=== PATIENT | female | born 1950 | race American Indian/Alaskan Native ===

== ENCOUNTER → 2019-11-07 | Outpatient (CLI) | payer MEDICARE ==
[2019-11-07 19:49] LABS: Adenovirus F 40/41 Not Detected (NOT DETECT); Astrovirus Not Detected (NOT DETECT); Campylobacter Sp Not Detected (NOT DETECT); Cryptosporidium Not Detected (NOT DETECT); Cyclospora Cayetanensis Not Detected (NOT DETECT); E. Coli O157 Not Detected (NOT DETECT); Entamoeba Histolytica Not Detected (NOT DETECT); Enteroaggregative E. coli-EAEC Not Detected (NOT DETECT); Enteropathogenic E. coli-EPEC Not Detected (NOT DETECT); Enterotoxigenic E. coli-ETEC Not Detected (NOT DETECT); Giardia Lamblia Not Detected (NOT DETECT); Norovirus GI/GII Not Detected (NOT DETECT); Plesiomonas Shigelloides Not Detected (NOT DETECT); Rotavirus A Not Detected (NOT DETECT); Salmonella Sp Not Detected (NOT DETECT); Sapovirus Not Detected (NOT DETECT); Shiga Toxin-prod E. coli-STEC Not Detected (NOT DETECT); Shigella/Enteroin E. coli-EIEC Not Detected (NOT DETECT); Vibrio Cholerae Not Detected (NOT DETECT); Vibrio Sp Not Detected (NOT DETECT); Yersinia Enterocolitica Not Detected (NOT DETECT)
[2019-11-08 10:23] LABS: Stool Occult Blood Guaiac 1 Neg (Neg)
[2019-11-08 15:11] LABS: FATS, NEUTRAL Increased (.); FATS, TOTAL Increased (.)
== END | disposition home or self-care (01) ==
LOC: LAB 09:00 → LAB SHORT 09:00
PROVIDERS: Family Medicine
DX: R19.7 Diarrhea, unspecified (principal)
CPT/HCPCS: 0097U; 82270; 82705; 87338

== ENCOUNTER → 2019-11-21 | Outpatient (CLI) | payer MEDICARE ==
[2019-11-22 12:15] LABS: Bilirubin, Urine Neg (Neg); Blood, Urine Neg (Neg); Glucose Qualitative, Urine Neg (Neg); Ketones, Urine Neg (Neg); Leukocyte Esterase, Urine 3+ (Neg); Nitrite, Urine Neg (Neg); Protein, Urine Neg (Neg); Specific Gravity, Urine 1.005 (1.003-1.022); Urobilinogen, Urine NORM (Normal)
[2019-11-22 13:13] LABS: Appearance, Urine Clear (Clear); Color, Urine Yellow (P-Yellow)
[2019-11-22 13:14] LABS: Red Blood Cells, Urine 0-2 /hpf (0-2); Squamous Epithelial Cells Few /hpf (Few)
[2019-11-22 13:15] LABS: Bacteria Few /hpf
== END | disposition home or self-care (01) ==
LOC: OLS 15:22 → LAB SHORT 15:22
PROVIDERS: Family Medicine
DX: R30.0 Dysuria (principal)
CPT/HCPCS: 81001; 87086

== ENCOUNTER 2019-12-26 21:49 | Inpatient (IN) | payer MEDICARE ==
[~2019-12-26] VITALS: Ht 157.5 cm; Wt 77.1 kg
[2019-12-26] MEDS ORDERED: CLOP75 PO (22:14)
[2019-12-26] MEDS ORDERED: AMLO10 PO (22:14)
[2019-12-26 22:36] LABS: BASOPHILS ABSOLUTE AUTO 0.07 K/mm3 (0.00-0.23); BASOPHILS PERCENT AUTO 1 % (0-2); EOSINOPHILS ABSOLUTE AUTO 0.02 K/mm3 (0.00-0.68); EOSINOPHILS PERCENT AUTO 0 % (0-6); Hematocrit 38.2 % (33.0-51.0); Hemoglobin 12.9 g/dL (11.5-16.0); IMMATURE GRAN ABSOLUTE AUTO 0.06 K/mm3 (0.00-0.10); IMMATURE GRAN PERCENT AUTO 0 % (0-1); LYMPHOCYTES ABSOLUTE AUTO 0.77 K/mm3 (0.84-5.20); LYMPHOCYTES PERCENT AUTO 6 % (21-46); MONOCYTES ABSOLUTE AUTO 0.52 K/mm3 (0.16-1.47); MONOCYTES PERCENT AUTO 4 % (4-13); Mean Corpuscular HGB 29.3 pg (26.0-34.0); Mean Corpuscular HGB Conc 33.8 g/dL (31.5-36.5); Mean Corpuscular Volume 87 fL (80-100); Mean Platelet Volume 9.6 fL (9.1-12.4); NEUTROPHILS ABSOLUTE AUTO 12.63 K/mm3 (1.96-9.15); NEUTROPHILS PERCENT AUTO 90 % (41-73); Platelet Count 470 K/mm3 (150-400); RDW Coefficient Variation 11.7 % (11.7-14.2); RDW Standard Deviation 37.6 fL (35.1-46.3); Red Blood Cell Count 4.41 M/mm3 (3.80-5.20); White Blood Cell Count 14.07 K/mm3 (4.00-11.30)
[2019-12-26 22:57] LABS: Alanine Aminotransfer (ALT/SGP 11 U/L (12-78); Albumin, Blood 2.6 g/dL (3.4-5.0); Albumin/Globulin Ratio 0.6 (0.8-1.8); Alk Phos 87 U/L (50-136); Anion Gap 13 mmol/L (6-16); Aspartate Aminotrans (AST/SGOT 13 U/L (12-37); Bilirubin, Total 0.7 mg/dL (0.1-1.0); Blood Urea Nitrogen 10 mg/dL (8-24); Bun/Creatinine Ratio 18.9 (12.0-20.0); CO2, Blood 21 mmol/L (21-32); Chloride, Blood 103 mmol/L (98-108); Creatinine, Blood 0.53 mg/dL (0.40-1.00); Globulin, Blood 4.5 g/dL (2.2-4.0); Glomerular Filtration Rate >60 (60-); Glucose, Blood 128 mg/dL (70-99); Magnesium, Blood 1.6 mg/dL (1.6-2.4); Potassium, Blood 3.5 mmol/L (3.5-5.5); Sodium, Blood 137 mmol/L (136-145); Total Protein, Blood 7.1 g/dL (6.4-8.2); Troponin I <0.015 ng/mL (0.000-0.040)
[2019-12-26 23:11] LABS: Source, Urine Clean Catch
[2019-12-26 23:17] LABS: Appearance, Urine Clear (Clear); Bilirubin, Urine Neg (Neg); Blood, Urine 1+ (Neg); Color, Urine Yellow (P-Yellow); Glucose Qualitative, Urine Neg (Neg); Ketones, Urine 4+ (Neg); Leukocyte Esterase, Urine 2+ (Neg); Nitrite, Urine Neg (Neg); Protein, Urine Neg (Neg); Specific Gravity, Urine 1.005 (1.003-1.022); Urobilinogen, Urine NORM (Normal)
[2019-12-26 23:28] LABS: Bacteria Mod /hpf; Squamous Epithelial Cells Mod /hpf (Few); White Blood Cells, Urine 50-100 /hpf (0-5)
[2019-12-27 04:21] LABS: BASOPHILS ABSOLUTE AUTO 0.04 K/mm3 (0.00-0.23); BASOPHILS PERCENT AUTO 0 % (0-2); EOSINOPHILS PERCENT AUTO 0 % (0-6); Hematocrit 37.9 % (33.0-51.0); Hemoglobin 13.1 g/dL (11.5-16.0); IMMATURE GRAN ABSOLUTE AUTO 0.03 K/mm3 (0.00-0.10); IMMATURE GRAN PERCENT AUTO 0 % (0-1); LYMPHOCYTES ABSOLUTE AUTO 0.43 K/mm3 (0.84-5.20); LYMPHOCYTES PERCENT AUTO 4 % (21-46); MONOCYTES ABSOLUTE AUTO 0.29 K/mm3 (0.16-1.47); MONOCYTES PERCENT AUTO 2 % (4-13); Mean Corpuscular HGB 29.9 pg (26.0-34.0); Mean Corpuscular HGB Conc 34.6 g/dL (31.5-36.5); Mean Corpuscular Volume 87 fL (80-100); Mean Platelet Volume 9.5 fL (9.1-12.4); NEUTROPHILS ABSOLUTE AUTO 11.52 K/mm3 (1.96-9.15); NEUTROPHILS PERCENT AUTO 94 % (41-73); Platelet Count 461 K/mm3 (150-400); RDW Coefficient Variation 11.8 % (11.7-14.2); RDW Standard Deviation 37.5 fL (35.1-46.3); Red Blood Cell Count 4.38 M/mm3 (3.80-5.20); White Blood Cell Count 12.31 K/mm3 (4.00-11.30)
[2019-12-27 04:38] LABS: Alanine Aminotransfer (ALT/SGP 12 U/L (12-78); Albumin, Blood 2.9 g/dL (3.4-5.0); Albumin/Globulin Ratio 0.6 (0.8-1.8); Alk Phos 91 U/L (50-136); Anion Gap 10 mmol/L (6-16); Aspartate Aminotrans (AST/SGOT 11 U/L (12-37); Bilirubin, Total 0.5 mg/dL (0.1-1.0); Blood Urea Nitrogen 7 mg/dL (8-24); Bun/Creatinine Ratio 14.7 (12.0-20.0); CO2, Blood 24 mmol/L (21-32); Calcium, Blood 8.7 mg/dL (8.5-10.1); Chloride, Blood 100 mmol/L (98-108); Creatinine, Blood 0.48 mg/dL (0.40-1.00); Globulin, Blood 4.6 g/dL (2.2-4.0); Glomerular Filtration Rate >60 (60-); Glucose, Blood 149 mg/dL (70-99); Potassium, Blood 2.8 mmol/L (3.5-5.5); Sodium, Blood 134 mmol/L (136-145); Total Protein, Blood 7.5 g/dL (6.4-8.2)
--- NOTE | 2019-12-27 06:13 | NUR ---
SHIFT SUMMARY PT WAS A NEW ADMIT DURING THE NIGHT, ARRIVING ON THE FLOOR AT 0205. SHE IS A&O X 4, SBA TO THE BATHROOM. PT WAS ADMITTED FOR ABD PAIN AND SEPSIS, AND N/V THAT STARTED YESTERDAY AFTER PT STARTED NEW CELEBREX PRESCRIPTION. PT IS STILL C/O NAUSEA ON ADMISSION AND RUQ TENDERNESS. VITAL SIGNS STABLE. SHE IS RECEIVING NS @ 75 ML/HR. NO ACUTE CHANGES IN PT CONDITION NOTED SINCE ADMISSION. WILL CONTINUE TO MONITOR AND TREAT PER EMAR UNTIL HAND OFF TO DAY SHIFT RN.
--- NOTE | 2019-12-27 08:07 | NUR ---
IV PLACEMENT: PATIENT HAS A PATENT IV WITH IV FLUIDS IN THE LEFT A/C, NOT THE RIGHT A/C.
[2019-12-27 08:30] LABS: Source, Urine Clean Catch
[2019-12-27 08:38] LABS: Bilirubin, Urine Neg (Neg); Blood, Urine 1+ (Neg); Color, Urine Yellow (P-Yellow); Glucose Qualitative, Urine 1+ (Neg); Ketones, Urine 3+ (Neg); Leukocyte Esterase, Urine 3+ (Neg); Nitrite, Urine Neg (Neg); Protein, Urine Neg (Neg); Specific Gravity, Urine 1.005 (1.003-1.022); Urobilinogen, Urine NORM (Normal)
[2019-12-27 08:46] LABS: Appearance, Urine Hazy (Clear); Bacteria Few /hpf; Squamous Epithelial Cells Many /hpf (Few); White Blood Cells, Urine 50-100 /hpf (0-5)
[2019-12-27 09:26] LABS: Adenovirus Not Detected (NOT DETECT); Coronavirus 229E Not Detected (NOT DETECT); Coronavirus HKU1 Not Detected (NOT DETECT); Coronavirus NL63 Not Detected (NOT DETECT); Coronavirus OC43 Not Detected (NOT DETECT); Human Metapneumovirus Not Detected (NOT DETECT); Human Rhinovirus/Enterovirus Not Detected (NOT DETECT); SARS-Cov-2 (COVID-19), BioFire Not Detected (NOT DETECT)
[2019-12-27 09:27] LABS: Bordetella pertussis Not Detected (NOT DETECT); Chlamydophila pneumoniae Not Detected (NOT DETECT); Influenza A/2009-H1 Not Detected (NOT DETECT); Influenza A/H1 Not Detected (NOT DETECT); Influenza A/H3 Not Detected (NOT DETECT); Influenza B Not Detected (NOT DETECT); Mycoplasma pneumoniae Not Detected (NOT DETECT); Parainfluenza Virus 1 Not Detected (NOT DETECT); Parainfluenza Virus 2 Not Detected (NOT DETECT); Parainfluenza Virus 3 Not Detected (NOT DETECT); Parainfluenza Virus 4 Not Detected (NOT DETECT); Respiratory Syncytial Virus Not Detected (NOT DETECT)
[2019-12-27 15:24] LABS: Anion Gap 9 mmol/L (6-16); Blood Urea Nitrogen 5 mg/dL (8-24); Bun/Creatinine Ratio 9.8 (12.0-20.0); CO2, Blood 24 mmol/L (21-32); Calcium, Blood 9.1 mg/dL (8.5-10.1); Chloride, Blood 105 mmol/L (98-108); Creatinine, Blood 0.51 mg/dL (0.40-1.00); Glomerular Filtration Rate >60 (60-); Glucose, Blood 92 mg/dL (70-99); Potassium, Blood 3.3 mmol/L (3.5-5.5); Sodium, Blood 138 mmol/L (136-145)
--- NOTE | 2019-12-27 19:15 | NUR ---
END OF SHIFT SUMMARY: PATIENT EXPERIENCED PAIN AND NAUSEA AT A 9/10 THIS MORNING. MEDICATED WITH MULTIPLE ANTI-EMETICS PER PRNS. MEDICATED FOR BREAKTHROUGH PAIN, SEE EMAR. AFTER THIS, PATIENT WAS ABLE TO REST AND FOR THE REST OF THE SHIFT PATIENT DENIED PAIN OR NAUSEA. PATIENT WAS WILLING TO HAVE WATER AND ICE CHIPS. PATIENT REFUSED ALL OTHER TYPES OF ORAL INTAKE, CITING THAT SHE DIDN'T WANT THE NAUSEA OR PAIN TO RETURN. PATIENT AWARE THAT SHE IS NPO AT MIDNIGHT FOR THE 11:30 BRONCHOSCOPY. PATIENT TOLERATING WATER AND ICE CHIPS WITHOUT NAUSEA OR ABDOMINAL CRAMPING. IV PPN STARTED PER ORDERS. PATIENT LEFT THE UNIT FOR A ABD CT WITH CONTRAST. RN NOTIFED THAT DUE TO RECENT CT SCAN WITH THE CONTRAST, THE PATIENT WILL NEED TO WAIT 24 HOURS FOR ANOTHER SCAN WITH CONTRAST. DR. GOMEZ NOTIFIED. PATIENT UP IN THE ROOM. PATIENT STEADY ON HER FEET. SOME SOB IS NOTED WITH AMBULATION. PATIENT REPORTS THIS IS HER BASELINE. NO SOB NOTED AT REST. BREATHING IS EVEN AND REGULAR. PATIENT'S WAS AT THE BEDSIDE FOR MUCH OF THE DAY.
--- NOTE | 2019-12-27 22:39 | NUR ---
2004 PT RESTING COMFORTABLY IN BED; DENIES PAIN, NAUSEA OR VOMITING; HAPPY AND COOPERATIVE; PT SCHEDULED FOR BRONCHOSCOPY 12/27 AND NPO AFTER MIDNIGHT.
--- NOTE | 2019-12-28 03:15 | NUR ---
SHIFT SUMMARY: 69 Y/O FEMALE RESTED COMFORTABLY ALL SHIFT; DENIES PAIN OR NAUSEA; PPN INFUSING WITHOUT ISSUE; PT NPO SINCE MIDNIGHT FOR BRONCHOSCOPY SCHEDULED THIS AM (CT ABD/PELVIS WITH CONTRAST WAS CANCELLED BY HOSPITALIST AND WILL NEED TO BE RESCHEDULED AFTER BRONCHOSCOPY COMPLETED TODAY); TELEMETRY REFLECTS NSR PER LUANNE--COMPREHENSIVE ADVISOR; BED LOW POSITION WITH CALL LIGHT AT SIDE; ALERT AND ORIENTED X 4.
[2019-12-28 04:55] LABS: BASOPHILS ABSOLUTE AUTO 0.09 K/mm3 (0.00-0.23); BASOPHILS PERCENT AUTO 1 % (0-2); EOSINOPHILS ABSOLUTE AUTO 0.19 K/mm3 (0.00-0.68); EOSINOPHILS PERCENT AUTO 2 % (0-6); Hematocrit 36.9 % (33.0-51.0); IMMATURE GRAN ABSOLUTE AUTO 0.07 K/mm3 (0.00-0.10); IMMATURE GRAN PERCENT AUTO 1 % (0-1); LYMPHOCYTES ABSOLUTE AUTO 1.83 K/mm3 (0.84-5.20); LYMPHOCYTES PERCENT AUTO 18 % (21-46); MONOCYTES ABSOLUTE AUTO 1.08 K/mm3 (0.16-1.47); MONOCYTES PERCENT AUTO 10 % (4-13); Mean Corpuscular HGB 29.2 pg (26.0-34.0); Mean Corpuscular HGB Conc 32.5 g/dL (31.5-36.5); Mean Corpuscular Volume 90 fL (80-100); NEUTROPHILS PERCENT AUTO 69 % (41-73); Platelet Count 433 K/mm3 (150-400); RDW Coefficient Variation 12.1 % (11.7-14.2); RDW Standard Deviation 39.7 fL (35.1-46.3); Red Blood Cell Count 4.11 M/mm3 (3.80-5.20); White Blood Cell Count 10.36 K/mm3 (4.00-11.30)
[2019-12-28 05:10] LABS: International Normalized Ratio 1.04; Prothrombin Time Results 11.1 Sec (9.7-11.5)
[2019-12-28 05:14] LABS: Alanine Aminotransfer (ALT/SGP 12 U/L (12-78); Albumin, Blood 2.4 g/dL (3.4-5.0); Albumin/Globulin Ratio 0.6 (0.8-1.8); Alk Phos 74 U/L (50-136); Anion Gap 8 mmol/L (6-16); Aspartate Aminotrans (AST/SGOT 20 U/L (12-37); Bilirubin, Total 0.4 mg/dL (0.1-1.0); Blood Urea Nitrogen 9 mg/dL (8-24); Bun/Creatinine Ratio 16.7 (12.0-20.0); CO2, Blood 26 mmol/L (21-32); Chloride, Blood 105 mmol/L (98-108); Creatinine, Blood 0.54 mg/dL (0.40-1.00); Globulin, Blood 4.2 g/dL (2.2-4.0); Glomerular Filtration Rate >60 (60-); Glucose, Blood 90 mg/dL (70-99); Magnesium, Blood 1.9 mg/dL (1.6-2.4); Phosphorus, Blood 3.1 mg/dL (2.5-4.9); Potassium, Blood 3.4 mmol/L (3.5-5.5); Sodium, Blood 139 mmol/L (136-145); Total Protein, Blood 6.6 g/dL (6.4-8.2); Triglycerides 129 mg/dL (30-160)
--- NOTE | 2019-12-28 10:54 | NUR ---
PT TRANSFERED TO [facility] FROM FLOOR VIA GURNEY. History, Chart, Medications and Allergies reviewed before start of procedure. RUL WITH LOLA MCHUGH. Patient confirms NPO status and agrees with scheduled surgery.
--- NOTE | 2019-12-28 11:09 | NUR ---
12/28/19 1109 Nicole Wells PATIENT CONFIRMS NPO STATUS AND AGREES WITH SCHEDULED PROCEDURE. History, Chart, Medications and Allergies reviewed before start of procedure. O2 VIA N/C INTACT THROUGHOUT SEDATION/PROCEDURE. 3-LEAD EKG REVIEWED WITH PHYSICIAN PRIOR TO START OF PROCEDURE. MONITOR INTACT WITH CONTINUOUS PULSE OXIMETRY AND INTERMITTENT BP.
--- NOTE | 2019-12-28 19:12 | NUR ---
SHIFT SUMMARY: PATIENT A&O; CALM AND COOPERATIVE WITH CARE. MEDICATED FOR NAUSEA PER EMAR. BRONCHOSCOPY THIS SHIFT; PT TOLERATED WELL; VSS; XRAY TO R/O PNEUMOTHORAX. PT REMAINS NPO; TPN CONTINUING AT 96 ML/HR. REPORT GIVEN TO ONCOMING RN.
--- NOTE | 2019-12-28 21:52 | NUR ---
2017 BP 178/107, MORPHINE SULFATE 1MG IVP GIVEN AND REGLAN 10MG PO FOR NAUSEA FEELING. 2124 BP 179/107, DR CALVILLO NOTIFIED WITH ORDERS INPUTTED TO SYSTEM BY .
--- NOTE | 2019-12-29 05:13 | NUR ---
SHIFT SUMMARY: 69 Y/O OBESE FEMALE RESTED COMFORTABLY ALL SHIFT; PT HAD HYPERTENSIVE EPISODE BEGINNING OF SHIFT WITH LABETALOL 10MG IVP GIVEN WITH GOOD RESULTS NOTED; DENIES PAIN; C/O SLIGHT NAUSEA FEELING WITH REGLAN 10MG PO GIVEN WITH GOOD RELIEF NOTED; NPO; PPN INFUSING WITHOUT ISSUE; UP TO BATHROOM X 1 STANDBY ASSIST WITHOUT ISSUE TO VOID; NO BM; TELEMETRY REFLECTS NSR PER LUANNE--TERRITORY REPRESENTATIVE; BED LOW POSITION WITH CALL LIGHT AT SIDE.
[2019-12-29 05:15] LABS: BASOPHILS ABSOLUTE AUTO 0.06 K/mm3 (0.00-0.23); BASOPHILS PERCENT AUTO 1 % (0-2); EOSINOPHILS ABSOLUTE AUTO 0.07 K/mm3 (0.00-0.68); EOSINOPHILS PERCENT AUTO 1 % (0-6); Hematocrit 36.9 % (33.0-51.0); Hemoglobin 12.3 g/dL (11.5-16.0); IMMATURE GRAN ABSOLUTE AUTO 0.04 K/mm3 (0.00-0.10); IMMATURE GRAN PERCENT AUTO 0 % (0-1); LYMPHOCYTES ABSOLUTE AUTO 1.29 K/mm3 (0.84-5.20); LYMPHOCYTES PERCENT AUTO 12 % (21-46); MONOCYTES ABSOLUTE AUTO 1.05 K/mm3 (0.16-1.47); MONOCYTES PERCENT AUTO 10 % (4-13); Mean Corpuscular HGB 29.6 pg (26.0-34.0); Mean Corpuscular HGB Conc 33.3 g/dL (31.5-36.5); Mean Corpuscular Volume 89 fL (80-100); Mean Platelet Volume 9.9 fL (9.1-12.4); NEUTROPHILS ABSOLUTE AUTO 8.11 K/mm3 (1.96-9.15); NEUTROPHILS PERCENT AUTO 76 % (41-73); Platelet Count 438 K/mm3 (150-400); RDW Coefficient Variation 11.9 % (11.7-14.2); RDW Standard Deviation 38.4 fL (35.1-46.3); Red Blood Cell Count 4.16 M/mm3 (3.80-5.20); White Blood Cell Count 10.62 K/mm3 (4.00-11.30)
[2019-12-29 05:40] LABS: Alanine Aminotransfer (ALT/SGP 12 U/L (12-78); Albumin, Blood 2.6 g/dL (3.4-5.0); Albumin/Globulin Ratio 0.7 (0.8-1.8); Alk Phos 68 U/L (50-136); Anion Gap 7 mmol/L (6-16); Aspartate Aminotrans (AST/SGOT 13 U/L (12-37); Bilirubin, Total 0.3 mg/dL (0.1-1.0); Blood Urea Nitrogen 13 mg/dL (8-24); Bun/Creatinine Ratio 22.2 (12.0-20.0); CO2, Blood 31 mmol/L (21-32); Chloride, Blood 99 mmol/L (98-108); Creatinine, Blood 0.59 mg/dL (0.40-1.00); Globulin, Blood 3.9 g/dL (2.2-4.0); Glomerular Filtration Rate >60 (60-); Glucose, Blood 108 mg/dL (70-99); Phosphorus, Blood 3.3 mg/dL (2.5-4.9); Potassium, Blood 2.7 mmol/L (3.5-5.5); Sodium, Blood 137 mmol/L (136-145); Total Protein, Blood 6.5 g/dL (6.4-8.2)
[2019-12-29] MEDS ORDERED: XARELTO20 MG PO (16:52)
[2019-12-29] MEDS ORDERED: CEFD300 PO (16:52)
[2019-12-29] MEDS ORDERED: ACET325 PO (16:52)
[2019-12-29] MEDS ORDERED: PROM12.5S PR (16:53)
--- NOTE | 2019-12-29 18:52 | NUR ---
PATIENT DISCHARGE: PATIENT DISCHARGED TO HOME THIS SHIFT. MEDICATION RECONCILIATION COMPLETED; MED LIST FAXED TO [facility] IN [place]. DISCHARGE EDUCATION COMPLETED WITH PATIENT AND FAMILY. PATIENT TRANSPORTED TO EXIT BY [facility] STAFF WITH WHEELCHAIR AT 1715. PATIENT DEPARTED [facility] VIA PRIVATE AUTO.
[2019-12-30] MEDS ORDERED: CELEXA10 MG PO (14:06)
== END 2019-12-29 17:14 | disposition home or self-care (01) | DRG 853 ==
LOC: ER 21:49 → MEDS 12-27 01:03 → ER 12-27 01:03 → MEDS 12-27 01:03 → ER 12-27 01:45 → MEDS 12-27 02:02
PROVIDERS: Emergency Medicine; Family Medicine; Internal Medicine Pulmonary Disease; ADMIT Internal Medicine
PROC: 0BBF8ZX Excision of Right Lower Lung Lobe, Via Natural or Artificial Opening Endoscopic, Diagnostic (ICD-10-PCS; principal; 2019-12-28 11:30)
PROC: 0BDD8ZX Extraction of Right Middle Lung Lobe, Via Natural or Artificial Opening Endoscopic, Diagnostic (ICD-10-PCS; 2019-12-28 11:30)
PROC: 0B9D8ZX Drainage of Right Middle Lung Lobe, Via Natural or Artificial Opening Endoscopic, Diagnostic (ICD-10-PCS; 2019-12-28 11:30)
DX: A41.51 Sepsis due to Escherichia coli [E. coli] (principal); I26.99 Other pulmonary embolism without acute cor pulmonale; E43 Unspecified severe protein-calorie malnutrition; C85.90 Non-Hodgkin lymphoma, unspecified, unspecified site; N39.0 Urinary tract infection, site not specified; C34.91 Malignant neoplasm of unspecified part of right bronchus or lung; Z87.891 Personal history of nicotine dependence; Z20.828 Contact with and (suspected) exposure to other viral communicable diseases; I10 Essential (primary) hypertension; E86.0 Dehydration; E87.6 Hypokalemia; Z68.31 Body mass index [BMI] 31.0-31.9, adult; F32.9 Major depressive disorder, single episode, unspecified; R91.8 Other nonspecific abnormal finding of lung field; R93.0 Abnormal findings on diagnostic imaging of skull and head, not elsewhere classified
CPT/HCPCS: 0202U; 36415; 71045; 71260; 74022; 74176; 80048; 80053; 81001; 82947; 83605; 83690; 83735; 84100; 84478; 84484; 85025; 85610; 85730; 87040; 87070; 87077; 87086; 87186; 87205; 88104; 88108; 88305; 93005; 93010; 94760; 96361; 96365; 96375; 96376; 99285-25; A9270-GY; C9113; G0378; J0171; J0456; J0696; J1650; J2250; J2270; J2405; J2550; J2765; J3010; J3480; J7030; J7050; J7120; Q9967

== ENCOUNTER 2019-12-30 12:20 | Inpatient (IN) | payer MEDICARE ==
[~2019-12-30] VITALS: Ht 157.5 cm; Wt 77.2 kg
[~2019-12-30 12:20] MED LIST: ACET325 PO; AMLO10 PO; CEFD300 PO; CLOP75 PO; PROM12.5S PR; XARELTO20 MG PO
[2019-12-30 12:58] LABS: BASOPHILS ABSOLUTE AUTO 0.12 K/mm3 (0.00-0.23); BASOPHILS PERCENT AUTO 1 % (0-2); EOSINOPHILS ABSOLUTE AUTO 0.03 K/mm3 (0.00-0.68); EOSINOPHILS PERCENT AUTO 0 % (0-6); Hematocrit 43.9 % (33.0-51.0); IMMATURE GRAN ABSOLUTE AUTO 0.07 K/mm3 (0.00-0.10); IMMATURE GRAN PERCENT AUTO 1 % (0-1); LYMPHOCYTES ABSOLUTE AUTO 1.05 K/mm3 (0.84-5.20); LYMPHOCYTES PERCENT AUTO 7 % (21-46); MONOCYTES ABSOLUTE AUTO 0.68 K/mm3 (0.16-1.47); MONOCYTES PERCENT AUTO 5 % (4-13); Mean Corpuscular HGB 29.8 pg (26.0-34.0); Mean Corpuscular HGB Conc 34.2 g/dL (31.5-36.5); Mean Corpuscular Volume 87 fL (80-100); Mean Platelet Volume 9.6 fL (9.1-12.4); NEUTROPHILS ABSOLUTE AUTO 12.27 K/mm3 (1.96-9.15); NEUTROPHILS PERCENT AUTO 86 % (41-73); Platelet Count 548 K/mm3 (150-400); RDW Coefficient Variation 11.9 % (11.7-14.2); RDW Standard Deviation 38.5 fL (35.1-46.3); Red Blood Cell Count 5.03 M/mm3 (3.80-5.20); White Blood Cell Count 14.22 K/mm3 (4.00-11.30)
[2019-12-30 13:13] LABS: Alanine Aminotransfer (ALT/SGP 18 U/L (12-78); Albumin, Blood 3.2 g/dL (3.4-5.0); Albumin/Globulin Ratio 0.7 (0.8-1.8); Alk Phos 104 U/L (50-136); Anion Gap 12 mmol/L (6-16); Aspartate Aminotrans (AST/SGOT 22 U/L (12-37); Bilirubin, Total 0.7 mg/dL (0.1-1.0); Blood Urea Nitrogen 21 mg/dL (8-24); CO2, Blood 24 mmol/L (21-32); Calcium, Blood 9.2 mg/dL (8.5-10.1); Chloride, Blood 102 mmol/L (98-108); Creatinine, Blood 0.72 mg/dL (0.40-1.00); Globulin, Blood 4.6 g/dL (2.2-4.0); Glomerular Filtration Rate >60 (60-); Glucose, Blood 125 mg/dL (70-99); Potassium, Blood 3.2 mmol/L (3.5-5.5); Sodium, Blood 138 mmol/L (136-145); Total Protein, Blood 7.8 g/dL (6.4-8.2)
[2019-12-30] MEDS ORDERED: CELEXA10 MG PO (14:06)
--- NOTE | 2019-12-30 16:56 | NUR ---
SHIFT SUMMARY PT ADMITTED FROM THE ER. SHE IS A/O X 4. SHE WAS DCD FROM MEDICAL FLOOR LAST NIGHT AND RETURNED WITH THE SAME N/V.SHE WAS UNABLE TO START HER NEW MEDS FROM DC LAST NIGHT SHE WAS SICK SINCE HER ARRIVAL BACK HOME. HER CALLED EMS AND HIS HERE NOW AT THE BEDSIDE. THEY ARE BOTH PLEASANT AND CONCERNED ABOUT HER ONGOING NAUSEA. SHE WAS ABLE TO TRANSFER TO BSC WITH STAND BY ASSIST. SHE KNOWS HOW TO USE THE CALL LIGHT AND HAS IT IN REACH.
--- NOTE | 2019-12-31 00:21 | NUR ---
BP ELEVATED EARLIER AND WAS NAUSEATED. RECEIVED ANTIEMETIC FIRST THEN ANTIHYPERTENSIVE - SEE MAR FOR DETAILS. BP LOWER, BUT STILL ELEVATED - SEE DOC FLOW SHEETS. WILL CONTINUE TO ASSESS AND ADMINISTER MEDS ORDERED. CURRENTLY RESTING QUYIETLY. NO C/O VOICED, CALL LIGHT IN REACH
[2019-12-31 05:06] LABS: BASOPHILS ABSOLUTE AUTO 0.08 K/mm3 (0.00-0.23); BASOPHILS PERCENT AUTO 1 % (0-2); EOSINOPHILS PERCENT AUTO 1 % (0-6); Hematocrit 40.3 % (33.0-51.0); Hemoglobin 13.7 g/dL (11.5-16.0); IMMATURE GRAN ABSOLUTE AUTO 0.08 K/mm3 (0.00-0.10); IMMATURE GRAN PERCENT AUTO 1 % (0-1); LYMPHOCYTES PERCENT AUTO 11 % (21-46); MONOCYTES ABSOLUTE AUTO 1.27 K/mm3 (0.16-1.47); MONOCYTES PERCENT AUTO 9 % (4-13); Mean Corpuscular HGB 29.8 pg (26.0-34.0); Mean Corpuscular Volume 88 fL (80-100); Mean Platelet Volume 9.3 fL (9.1-12.4); NEUTROPHILS ABSOLUTE AUTO 10.99 K/mm3 (1.96-9.15); NEUTROPHILS PERCENT AUTO 78 % (41-73); Platelet Count 492 K/mm3 (150-400); RDW Coefficient Variation 11.9 % (11.7-14.2); RDW Standard Deviation 38.5 fL (35.1-46.3); Red Blood Cell Count 4.59 M/mm3 (3.80-5.20); White Blood Cell Count 14.02 K/mm3 (4.00-11.30)
[2019-12-31 05:54] LABS: Alanine Aminotransfer (ALT/SGP 17 U/L (12-78); Albumin, Blood 2.7 g/dL (3.4-5.0); Albumin/Globulin Ratio 0.7 (0.8-1.8); Alk Phos 87 U/L (50-136); Anion Gap 7 mmol/L (6-16); Aspartate Aminotrans (AST/SGOT 17 U/L (12-37); Bilirubin, Total 0.6 mg/dL (0.1-1.0); Blood Urea Nitrogen 12 mg/dL (8-24); Bun/Creatinine Ratio 20.6 (12.0-20.0); CO2, Blood 28 mmol/L (21-32); Calcium, Blood 8.6 mg/dL (8.5-10.1); Chloride, Blood 101 mmol/L (98-108); Creatinine, Blood 0.58 mg/dL (0.40-1.00); Globulin, Blood 3.9 g/dL (2.2-4.0); Glomerular Filtration Rate >60 (60-); Glucose, Blood 128 mg/dL (70-99); Potassium, Blood 3.2 mmol/L (3.5-5.5); Sodium, Blood 136 mmol/L (136-145); Total Protein, Blood 6.6 g/dL (6.4-8.2)
--- NOTE | 2019-12-31 06:41 | NUR ---
SHIFT SUMMARY HAS BEEN RESTING QUIETLY AT INTERVALS, MEDICATED FOR PAIN, ELEVATED BP AND NAUSEA AT INTERVALS THROUGHOUT SHIFT - SEE MAR FOR DETAILS. CURRENTLY IVF INFUSING AT 100 ML/HR. CALL LIGHT IN REACH. RESTING QUIETLY AT THIS TIME
--- NOTE | 2019-12-31 16:24 | NUR ---
SHIFT SUMMARY PT IS A/O X 4 AND HAS ONGOING NAUSEA FOR WHICH SHE HAS BEEN MEDICATED. SHE HAD DARK BROWN EMESIS X [address] ONOFRE WAS NOTIFIED. HE ORDERED A KUB WHICH WAS COMPLETED. HE ALSO GAVE A ONE TIME ORDER FOR MIRALAX WHICH PER THE PT MADE HER NAUSEOUS. HER FLUIDS ARE RUNNING IN THE POWERGLIDE THE CHARGE NURSE STARTED THIS MORNING. HER WAS HERE FOR A SHORT TIME THIS MORNING. PO FLUIDS HAVE BEEN ENCOURAGED ALONG WITH SOME CHICKEN BROTH. BP IS HIGH AGAIN THIS AFTERNOON AND PRN MEDS WERE GIVEN ORDERED, THE BP IS ASYMPTOMATIC WHEN HER BP IS ELEVATED. PT IS A STAND BY ASSIST TO THE BSC AND SHE CALLS APPROPRIATELY WHEN NEEDED. SHE IS RESTING IN BED WITH HER CALL LIGHT IN REACH.
--- NOTE | 2019-12-31 21:39 | NUR ---
ELEVATE BP AND PULSE, SEE DOC FLOW SHEETS. NOTIFIED, ORDERS FOR MED TELE AND LOPRESSOR IV OBTAINED. TELE ON, MED GIVEN. BP LOWER BUT STILL ELEVATED. HAD N/V AND RECEIVED IV PHENERGAN, CURRENTLY RESTING QUIETLY, CALL LIGHT IN REACH. WILL CONTINUE TO MONITOR
--- NOTE | 2020-01-01 04:30 | NUR ---
BP REMAINS HIGH. ANOTHER DOSE OF LOPRESSOR IV ADMINISTERED. WILL RE CHECK BP IN 1/2 TO 1 HR FOR RESULTS. IVF OF D5 1/2 NS WITH 20 mEq KCL INFUSING AT 100 ML/HR NAUSEA CONTINUES. CALL LIGHT IN REACH
--- NOTE | 2020-01-01 05:20 | NUR ---
SHIFT SUMMARY AWAKE AT INTERVALS, BP REMAINS ELEVATED, HAS RECEIVED LOPRESSOR IV X 2 OF THIS WRITING, HAS RECEIVED BOTH PHENERGAN AND ZOFRAN FOR N/V. HAS PUT OUT OVER 300 CC EMESIS. IVF INFUSING AT 100 ML/HR ORDERED TO PREVENT DEHYDRATION. REST ENCOURAGED. PT VOICED FRUSTRATION RE BP AND N/V. ENCOURAGEMENT GIVEN. CALL LIGHT IN REACH.
--- NOTE | 2020-01-01 15:54 | NUR ---
SHIFT SUMMARY PT IS A/O X 4 AND HAS NO C/O PAIN BUT SHEDOES CONTINUE TO REPORT THAT SHE IS NASEOUS. TODAY SHE APPEARS TO BE FEELING BETTER AND ORAL INTAKE WAS ENCOURAGED BY NURSING STAFF ALONG WITH THE DOCTOR. THE DOCTOR WAS ALSO NOTIFIED OF THE ONGOING HTN AND MADE CHANGES TO HER MEDS REFLECTED ON THE E-MAR, THEY WERE GIVEN ORDERED AND EFFECTIVE. PT ALSO HAS YET TO HAVE A BM AND REPORTS THAT IT HAS BEEN OVER 7 DAYS SINCE HER LAST BM. THE DOCTOR GAVE ORDERS WHICH WERE IMPLEMENTED. OF NOW SHE HAS NOT HAD ANY RESULTS. EDUCATION WAS DONE WITH THE PT ABOUT THE NEED FOR ORAL INTAKE AND TO MOVE HER BOWELS TO HELP IMPROVE HER SYMPTOMS BUT SHE CONTIUES TO HAVE A POOR APPETITE. SHE CONTINUES ON IV FLUIDS. SHE WAS ASSISTED UP TO TAKE A SHOWER TODAY AND HER LINENS CHANGED BY THE PUNCH OPERATOR. PT IS ABLE TO MAKE HER NEEDS KNOWN AND CALLS FOR HELP WHEN NEEDED.
--- NOTE | 2020-01-01 19:47 | NUR ---
AWAKE, PLAN OF THE DAY DISCUSSED- MEDS TO ENCOURAGE BM. RATIONALE DISCUSSED. CALL LIGHT IN REACH
--- NOTE | 2020-01-01 22:08 | NUR ---
MEDICATION FOR ELEVATED BP GIVEN, WILL RE CHECK BP IN 1/2 TO 1 HR FOR RESULTS. ASYMPTOMATIC AT THIS TIME. CALL LIGHT IN REACH
--- NOTE | 2020-01-02 04:12 | NUR ---
SHIFT SUMMARY HAS BEEN RESTING QUIETLY WITH A FEW INTERRUPTIONS OF NAUSEA AND ELEVATED BP. MEDICATED FOR BOTH - SEE MAR FOR DETAILS. MEDICATIONS EFFECTIVE. RESTING QUIETLY AT THIS TIME. IVF INFUSING ORDERED. HAS HAD 2 SMALL BOWEL MOVEMENTS OF THIS WRITING. CALL LIGHT IN REACH
[2020-01-02 14:25] LABS: BASOPHILS ABSOLUTE AUTO 0.11 K/mm3 (0.00-0.23); BASOPHILS PERCENT AUTO 1 % (0-2); EOSINOPHILS ABSOLUTE AUTO 0.46 K/mm3 (0.00-0.68); EOSINOPHILS PERCENT AUTO 3 % (0-6); Hematocrit 39.5 % (33.0-51.0); Hemoglobin 13.6 g/dL (11.5-16.0); IMMATURE GRAN PERCENT AUTO 1 % (0-1); LYMPHOCYTES ABSOLUTE AUTO 1.93 K/mm3 (0.84-5.20); LYMPHOCYTES PERCENT AUTO 12 % (21-46); MONOCYTES ABSOLUTE AUTO 1.61 K/mm3 (0.16-1.47); MONOCYTES PERCENT AUTO 10 % (4-13); Mean Corpuscular HGB 29.8 pg (26.0-34.0); Mean Corpuscular HGB Conc 34.4 g/dL (31.5-36.5); Mean Corpuscular Volume 86 fL (80-100); Mean Platelet Volume 9.2 fL (9.1-12.4); NEUTROPHILS ABSOLUTE AUTO 11.34 K/mm3 (1.96-9.15); NEUTROPHILS PERCENT AUTO 73 % (41-73); Platelet Count 538 K/mm3 (150-400); RDW Coefficient Variation 11.9 % (11.7-14.2); RDW Standard Deviation 37.8 fL (35.1-46.3); Red Blood Cell Count 4.57 M/mm3 (3.80-5.20); White Blood Cell Count 15.55 K/mm3 (4.00-11.30)
[2020-01-02 15:05] LABS: Alanine Aminotransfer (ALT/SGP 31 U/L (12-78); Albumin, Blood 2.7 g/dL (3.4-5.0); Albumin/Globulin Ratio 0.8 (0.8-1.8); Alk Phos 87 U/L (50-136); Anion Gap 7 mmol/L (6-16); Aspartate Aminotrans (AST/SGOT 28 U/L (12-37); Bilirubin, Total 0.3 mg/dL (0.1-1.0); Blood Urea Nitrogen 11 mg/dL (8-24); Bun/Creatinine Ratio 18.1 (12.0-20.0); CO2, Blood 27 mmol/L (21-32); Calcium, Blood 8.5 mg/dL (8.5-10.1); Chloride, Blood 100 mmol/L (98-108); Creatinine, Blood 0.61 mg/dL (0.40-1.00); Globulin, Blood 3.6 g/dL (2.2-4.0); Glomerular Filtration Rate >60 (60-); Glucose, Blood 108 mg/dL (70-99); Potassium, Blood 3.1 mmol/L (3.5-5.5); Sodium, Blood 134 mmol/L (136-145); Total Protein, Blood 6.3 g/dL (6.4-8.2)
--- NOTE | 2020-01-02 18:19 | NUR ---
SHIFT SUMMARY: NO ACUTE EVENTS TO REPORT THIS SHIFT. PT A&O; ANXIOUS; COOPERATIVE WITH CARE. NO C/O PAIN THIS SHIFT. MEDICATED FOR NAUSEA PER EMAR; NO EMESIS NOTED. MEDICATED FOR ELEVATED BP PER EMAR; BP RESPONDING FAVORABLY. TWO LOOSE BMs THIS SHIFT R/T AGGRESSIVE BOWEL CARE. REHYDRATION & IV ABX CONTINUING. WCTM.
--- NOTE | 2020-01-02 19:27 | NUR ---
AWAKE AT SHIFT CHANGE. IVF OF D5 1/2NS WITH 20mEqKCL infusing at 100 ml/hr. DENIES PAIN. NO NOTED DISTRESS. CALL LIGHT IN REACH
--- NOTE | 2020-01-03 03:45 | NUR ---
HAS BEEN RESTING QUIETLY WITH FEW INTERRUPTIONS SINCE HS. RECEIVED ANTIEMETIC AT THAT TIME, NO FURTHER C/O N/V VOICED SINCE. IVF OF D5 1/2 NS WITH 20 mEq KCL INFUSING AT 100 ML/HR. CALL LIGHT IN REACH
[2020-01-03 06:32] LABS: Anion Gap 8 mmol/L (6-16); Blood Urea Nitrogen 10 mg/dL (8-24); Bun/Creatinine Ratio 16.5 (12.0-20.0); CO2, Blood 26 mmol/L (21-32); Calcium, Blood 8.4 mg/dL (8.5-10.1); Chloride, Blood 96 mmol/L (98-108); Creatinine, Blood 0.61 mg/dL (0.40-1.00); Glomerular Filtration Rate >60 (60-); Glucose, Blood 105 mg/dL (70-99); Potassium, Blood 3.1 mmol/L (3.5-5.5); Sodium, Blood 130 mmol/L (136-145)
--- NOTE | 2020-01-03 19:49 | NUR ---
END OF SHIFT SUMMARY: PATIENT DENIED PAIN THROUGHOUT THE SHIFT. PATIENT REPORTED CONTINUOUS NAUSEA. MEDICATED TWICE WITH ANTI-EMETIC PER PRNS. PATIENT ALSO REPORTS MINIMAL INTEREST IN FOOD. ORDERED A MAGIC CUP FOR AFTER DINNER. PATIENT REPORTED IT WAS TOO SWEET. ENCOURAGED PATIENT TO CONTINUE TO LET US KNOW OF FOOD PREFERENCES. PATIENT STAYED IN HER BED DURING THE DAY EXCEPT TO GET UP TO THE BSC WHEN NEEDED. ENCOURAGED PATIENT TO INCREASE HER AMBULATION AND TO STICK TO A ROUTINE DURING THE DAY (EX: UP TO THE CHAIR FOR MEALS). DISCUSSED WITH NIGHT RNHARISH.
--- NOTE | 2020-01-04 04:11 | NUR ---
SHIFT SUMMARY ASSUMED CARE OF PT AT 1900. PT IS A/OX4. HEART SOUNDS REGULAR, TELE SHOWS SINUS, LUNG SOUNDS HAVE A WHEEZE/RUB ON THE R SIDE, DENIES SOB. PT WAS NEASEATED T/O THE SHIFT, MEDICATED PER EMAR. PT C/O HEARTBURN, CALLED HOSPITALIST FOR MEDCATION BUT PT WAS ASLEEP AND DIDNT RECEIVE IT AND DIDNT C/O IF IT SINCE. PT IS INDEPENDENT TO BSC. NO ACUTE EVENTS DURING THE NIGHT. PT SLEPT T/O THE NIGHT. CALL LIGHT IN REACH, BED IN LOWEST POSTION.
--- NOTE | 2020-01-04 14:52 | NUR ---
Patient is sitting up in bed and alert. Patient is quiet and answers questions sparingly. Patient tells me about all the tests that have been performed and that the unknowns can be very scary. Patient talks about her good family support system and the horrible nausea and vomiting she has had for months. I normalize patient's experience, and provide a calming presence and therapeutic listening. Patient response was marginal at best. I will continue to attempt to form a therapeutic alliance.
--- NOTE | 2020-01-04 16:44 | NUR ---
SUMMARY PT IS A/O X4, GENERALLY PLEASANT HOWEVER STATE ONGOING NAUSEA w VOMITING @ X'S. THIS AM SHE HAD SM AMT DRK BROWN MUCOUSY EMESIS, APPROX 50ML. GAVE ZOFRAN, SHE WAS ABLE TO EAT APPROX 50% BF. HAVE GIVEN ZOFRAN, REGLAN & PHENERGAN TODAY FOR NAUSEA CONTROL/RELIEF. SHE HAS BEEN UP TO BSC SBA, NO BM SO FAR TODAY HOWEVER SHE STATE NO CONSTIPATION. DR BENDER SAW HER THIS AM, STATE HE WILL CONTACT ONCOLOGY, DR OCHOA FOR POSSIBLE CONSULT. SBP ELEVATED, LEBETALOL GIVEN THIS AFTERNOON.
--- NOTE | 2020-01-05 01:34 | NUR ---
01/04/201944 PT RESTING COMFORTABLY AT MOMENT AND DENIES NAUSEA OR PAIN; PT VERY QUIET WITH FLAT AFFECT SHE AWAITING CONSULT FROM ONOCOLOGIST IN AM.
--- NOTE | 2020-01-05 03:49 | NUR ---
SHIFT SUMMARY: 69 Y/O FEMALE RESTED COMFORTABLY 1/2 SHIFT; PT HAD ONGOING BOUTS NAUSEA WITHOUT EMESIS AT TIMES WITH REGLAN AND ZOFRAN GIVEN WITH ADEQUATE RELIEF VOICED; PT ABLE TO TRANSFER TO BSC PER SELF WITHOUT ISSUE; TELEMETRY REFLECTS NSR PER IVANIA--BROTHEL KEEPER; PT HAS PENDING ONOCOLOGIST CONSULT TODAY; PT HAS VERY FLAT AFFECT AND IS SLIGHTLY WITHDRAWN DURING SHIFT IN ANTICIPATION THIS CONSULT; DENIES PAIN; BED LOW POSITION WITH CALL LIGHT AT SIDE.
[2020-01-05 05:13] LABS: Anion Gap 6 mmol/L (6-16); Blood Urea Nitrogen 7 mg/dL (8-24); CO2, Blood 25 mmol/L (21-32); Calcium, Blood 8.1 mg/dL (8.5-10.1); Chloride, Blood 101 mmol/L (98-108); Creatinine, Blood 0.59 mg/dL (0.40-1.00); Glomerular Filtration Rate >60 (60-); Glucose, Blood 92 mg/dL (70-99); Potassium, Blood 3.6 mmol/L (3.5-5.5); Sodium, Blood 132 mmol/L (136-145)
--- NOTE | 2020-01-05 13:16 | NUR ---
Attemted to meet with patient. She was talking with her and family on phone. Dr perkins in to see patient. Doctor maddie suggest brain scan.
--- NOTE | 2020-01-05 16:03 | NUR ---
SUMMARY PT IS A/O X4, AFFECT COOPERATIVE HOWEVER CONTINUES SOMEWHAT FLAT. SHE STATE NO APPETITE R/T ONGOING NAUSEA. SHE HAS HAD EMESIS APPROX 250ML FOLLOWING LUNCH TODAY. DR BENDER IN TO SEE HER & THIS AM, DISCUSS +LUNG CA. DR OCHOA (ONCOLOGY) IN TO SEE HER TODAY, DR WASHINGTON (PULMONOLOGY) IN TO SEE HER. PALLIATIVE CARE RN WAS IN WELL TO DISCUSS NEW DX & CODE STATUS, PT WILL CONTINUE FULL CODE FOR NOW. HAVE GIVEN ZOFRAN, PHENERGAN & REGLAN TODAY TO ASSIST w N/V, SHE STATE SOME RELLIEF. CONCERT SINGER ASSIST HER TO SHOWER TODAY.
--- NOTE | 2020-01-05 17:02 | NUR ---
Review of patient with physician. Pt alert and oriented and wanting to talk aobut her status. We did a symptom review she denies headaches, balnce disturbance or dizziness, she denies difficulty swallowing. She states her main complaint is her air hunger and nausea. She states her breathing feels tight. Noted she does not angel much and tends to look up. She is also slightly labored and every few breaths gulps air. She denies blaoting but states she belches a lot. She has minimal pain to her joints or back she is a little anxious. We reviewed her stress and her needs. Doctor Baron called her and advised a plan of care and need for a CT scan of her brain. We review strategies and plans of care. We reviewed advance directive and polst and what recusitiation and ICU care and ventilation would be like. She is admant lyssa until she know for certain what the plan is she want full treatment. She is willing to shakila an advance directive and discuss with her . She has a call out to her son. She states she is estranged from her other children. THe recetnly moved here and the y have friends but no family. Updated the RN suggested possily some dexmethazone and low dose narcotic for airhunger.
--- NOTE | 2020-01-05 21:21 | NUR ---
1946 69 Y/O FEMALE RESTED COMFORTABLY IN BED; CHEERFUL; DENIES NAUSEA OR PAIN.
--- NOTE | 2020-01-06 02:51 | NUR ---
SHIFT SUMMARY: 69 Y/O FEMALE RESTED COMFORTABLY ALL SHIFT; DENIES PAIN OR NAUSEA THIS SHIFT; PT HAS VERY FLAT AFFECT AND ONLY INTERACTS WITH NURSING STAFF WHEN QUESTIONS ARE ASKED; UP BSC PER SELF WITHOUT ISSUE; LUNG SOUNDS ARE DIMINISHED THROUGHOUT; BED LOW POSITION WITH CALL LIGHT AT SIDE.
--- NOTE | 2020-01-06 13:32 | NUR ---
PATIENT IS A 69 YEAR OLD FEMALE. PATIENT IS PLEASANT AND COMPLIANT. PATIENT WAS TREATED FOR NAUSEA PER EMAR. PATIENT APPEARED TO BE RESTING COMFORTABLY IN BED WITH IT AT THE LOWEST POSITION WITH CALL LIGHT IN REACH. NO DISTRESS NOTED.
--- NOTE | 2020-01-06 18:18 | NUR ---
PLEASE REFER TO STUDENT NOTED FOR SHIFT SUMMARY.
--- NOTE | 2020-01-07 03:55 | NUR ---
SHIFT SUMMARY A/O, ABLE TO MAKE NEEDS KNOWN. COOPERATIVE WITH CARE. CALLS AND ANSWERS QUESTIONS APPROPRIATELY. NO C/O PAIN/DISCOMFORT. HOWEVER DID HAVE EMESIS AT BEGINNING OF SHIFT; STATED JUST AFTER DINNER AND WAS NOT ABLE TO EAT VERY MUCH. MEDICATED FOR NAUSEA X1 @ 0; HAS NOT STATED ANYMORE NAUSEA THUS FAR. APPEARED TO REST MUCH OF THE NIGHT. IV FLUIDS CONTINUE TO INFUSE TO POWERGLIDE WITHOUT COMPLICATIONS. NO ACUTE CHANGES NOTED. VSS/AFEBRILE. BED REMAINS IN LOWEST POSITION. CALL LIGHT AND BELONGINGS WITHIN REACH. WCTM. REPORT TO ONCOMING RN.
--- NOTE | 2020-01-07 13:54 | NUR ---
PT IS A&O AND ABLE TO COMMUNICATE NEEDS AND COOPERATE IN HER CARE. SHE USES CALL LIGHT AND ANSWERS APPROAPRIETLY. PT HAS BEEN TREATED FOR NAUSEA PER EMAR SHE REPORTED NAUSEA AT THE START OF SHIFT.
--- NOTE | 2020-01-07 17:36 | NUR ---
PLEASE REFER TO STUDENT NOTES FOR SHIFT SUMMARY.
--- NOTE | 2020-01-08 03:42 | NUR ---
SUMMARY PT HAD SOME NAUSEA EARLY IN SHIFT. PT TX PER EMAR. PT HAD NO OTHER COMPLAINTS. PT HAS SLEPT OFF AND ON T/O SHIFT. PT CURRENTLY SLEEPING IN NO DISTRESS. CALL LIGHT IN REACH.
[2020-01-08 05:51] LABS: BASOPHILS ABSOLUTE AUTO 0.06 K/mm3 (0.00-0.23); BASOPHILS PERCENT AUTO 1 % (0-2); EOSINOPHILS ABSOLUTE AUTO 0.24 K/mm3 (0.00-0.68); EOSINOPHILS PERCENT AUTO 3 % (0-6); Hematocrit 31.1 % (33.0-51.0); Hemoglobin 10.3 g/dL (11.5-16.0); IMMATURE GRAN ABSOLUTE AUTO 0.05 K/mm3 (0.00-0.10); IMMATURE GRAN PERCENT AUTO 1 % (0-1); LYMPHOCYTES ABSOLUTE AUTO 1.61 K/mm3 (0.84-5.20); LYMPHOCYTES PERCENT AUTO 20 % (21-46); MONOCYTES PERCENT AUTO 11 % (4-13); Mean Corpuscular HGB 29.9 pg (26.0-34.0); Mean Corpuscular HGB Conc 33.1 g/dL (31.5-36.5); Mean Corpuscular Volume 90 fL (80-100); Mean Platelet Volume 9.6 fL (9.1-12.4); NEUTROPHILS ABSOLUTE AUTO 5.35 K/mm3 (1.96-9.15); NEUTROPHILS PERCENT AUTO 65 % (41-73); Platelet Count 381 K/mm3 (150-400); RDW Coefficient Variation 12.9 % (11.7-14.2); RDW Standard Deviation 42.5 fL (35.1-46.3); Red Blood Cell Count 3.45 M/mm3 (3.80-5.20); White Blood Cell Count 8.21 K/mm3 (4.00-11.30)
[2020-01-08 06:09] LABS: Alanine Aminotransfer (ALT/SGP 13 U/L (12-78); Albumin/Globulin Ratio 0.6 (0.8-1.8); Alk Phos 67 U/L (50-136); Anion Gap 5 mmol/L (6-16); Aspartate Aminotrans (AST/SGOT 15 U/L (12-37); Bilirubin, Total 0.4 mg/dL (0.1-1.0); Blood Urea Nitrogen 7 mg/dL (8-24); Bun/Creatinine Ratio 12.5 (12.0-20.0); CO2, Blood 25 mmol/L (21-32); Calcium, Blood 8.5 mg/dL (8.5-10.1); Chloride, Blood 107 mmol/L (98-108); Creatinine, Blood 0.56 mg/dL (0.40-1.00); Globulin, Blood 3.3 g/dL (2.2-4.0); Glomerular Filtration Rate >60 (60-); Glucose, Blood 76 mg/dL (70-99); Potassium, Blood 4.4 mmol/L (3.5-5.5); Sodium, Blood 137 mmol/L (136-145); Total Protein, Blood 5.3 g/dL (6.4-8.2)
--- NOTE | 2020-01-08 16:04 | NUR ---
SHIFT SUMMARY PT IS A/O X 4 AND HAD NO C/O PAIN. SHE DOES REPORT MILD NAUSEA BUT STATES THAT THE SPRITE WAS HELPFUL. PO FLUIDS HAVE BEEN ENCOURAGED THROUGHOUT THE DAY. STARTED HER ON MIRTAZAPINE REFLECTED ON THE MAR TO HELP BOOST HER APPETITE. PT HAS BEEN SIPPING ON CHICKEN BROTH THIS AFTERNOON. SHE WAS SET UP FOR A SHOWER AND HER LINENS CHANGED. PLAN IS FOR HER TO DC POSSIBLY TO REHAB FOR STRENGTH BUILDING BEFORE RETURNING HOME. SHE IS RESTING IN BED AND HAS HER CALL LIGHT IN REACH.
--- NOTE | 2020-01-09 06:15 | NUR ---
SUMMARY: A/OX4, CALLS APPROPRIATELY AND COOPERATIVE W/CARE. SHE'S DENIED PAIN AND ALL OTHER COMPLAINTS. PT REFUSED SUPPOSITORY AT HS DESPITE NO BM X2-3 DAYS ON ACCOUNT OF FEELING "RUMBLING IN STOMACH AND MOVEMENT HAPPENING". SHE'D HAD A BROWN COW ON DAY SHIFT BUT NEVER DID HAVE A BM SINCE. PO INTAKE ENCOURAGED AND SHE TOLERATES REGULAR DIET W/O NAUSEA BUT APPETITE IS STILL FAIRLY POOR AT NIGHT. MIRTAZAPINE BEING RECIEVED APPETITE STIMULANT. SHE REPOSITIONS SELF IN BED AND WAS SBA TO TOILET. NO ACUTE CHANGES, VSS/AFEBRILE. PLAN TO POSSIBLY D/C TO REHAB THEN HOME. WCTM/REPORT TO DAY RN.
--- NOTE | 2020-01-09 15:57 | NUR ---
SHIFT SUMMARY PT IS A/O X 4. SHE HAS HAD NO C/O PAIN TODAY. SHE HAS BEEN AGREEABLE TO INCREASED PO FLUIDS. THIS NURSE SPOKE WITH THE PROVIDER ABOUT THE LACK OF BMS. NO NEW ORDERS WERE GIVEN BUT PO INTAKE CONTINUES TO BE ENCOURAGED. PT IS IND IN HER ROOM TO TOILET. PT WORKED WITH THERAPIES TODAY. PLAN IS FOR HER TO DC HOME OR TO SNF DEPENDING ON THERAPY REC. SHE CALLS FOR HELP WHEN NEEDED AND HAS HER CALL LIGHT IN REACH.
--- NOTE | 2020-01-10 05:17 | NUR ---
SHIFT SUMMARY PT A/O X4; PLEASANT AND COOPERATIVE WITH CARE. IND TO THE BA. NO C/O OF PAIN, NAUSEA OR VOMITING. PT HAS BEEN SLEEPING FOR THE MAJORITY OF THE SHIFT. VSS, RESTING QUIETLY IN BED WITH CALL LIGHT IN REACH.
[2020-01-10] MEDS ORDERED: METO5A PO (14:12)
[2020-01-10] MEDS ORDERED: SENN187 PO (14:13)
[2020-01-10] MEDS ORDERED: ONDA4ODT MM (14:15)
[2020-01-10] MEDS ORDERED: MIRT15 PO (14:22)
[2020-01-10] MEDS ORDERED: POTA10T PO (14:26)
[2020-01-10] MEDS ORDERED: MEGESTROL (14:26)
--- NOTE | 2020-01-10 15:09 | NUR ---
PATIENT DISCHARGED HOME WITH HER ON 01/10/20 AT 1505 . RN PUSHED PATIENT OUT IN WHEELCHAIR.
== END 2020-01-10 15:07 | disposition home or self-care (01) | DRG 54 ==
LOC: ER 12:20 → MEDS 16:11
PROVIDERS: Emergency Medicine; Internal Medicine; ADMIT Family Medicine
DX: C79.31 Secondary malignant neoplasm of brain (principal); E43 Unspecified severe protein-calorie malnutrition; J96.01 Acute respiratory failure with hypoxia; C34.90 Malignant neoplasm of unspecified part of unspecified bronchus or lung; N39.0 Urinary tract infection, site not specified; R11.2 Nausea with vomiting, unspecified; Z87.891 Personal history of nicotine dependence; Z86.73 Personal history of transient ischemic attack (TIA), and cerebral infarction without residual deficits; Z68.31 Body mass index [BMI] 31.0-31.9, adult; F32.9 Major depressive disorder, single episode, unspecified; E86.0 Dehydration; E87.6 Hypokalemia; R63.0 Anorexia
CPT/HCPCS: 36415; 70470; 71045; 74018; 80048; 80053; 85025; 93005; 93010; 94760; 96361; 96365; 96375; 97161; 97165; 97535; 99285-25; A9270; C1751; J0696; J2405; J2550; J7030; Q9967

== ENCOUNTER 2020-02-15 11:56 | Inpatient (IN) | payer MEDICARE ==
[~2020-02-15] VITALS: Ht 157.5 cm; Wt 73.7 kg
[~2020-02-15 11:56] MED LIST changes: +CELEXA10 MG PO; +MEGESTROL; +METO5A PO; +MIRT15 PO; +ONDA4ODT MM; +POTA10T PO; +SENN187 PO
[2020-02-15 12:37] LABS: Hematocrit 35.9 % (33.0-51.0); Hemoglobin 12.2 g/dL (11.5-16.0); Mean Corpuscular HGB 29.7 pg (26.0-34.0); Mean Corpuscular Volume 87 fL (80-100); Mean Platelet Volume 9.7 fL (9.1-12.4); Platelet Count 323 K/mm3 (150-400); RDW Coefficient Variation 12.5 % (11.7-14.2); RDW Standard Deviation 39.9 fL (35.1-46.3); Red Blood Cell Count 4.11 M/mm3 (3.80-5.20); White Blood Cell Count 5.28 K/mm3 (4.00-11.30)
[2020-02-15 12:46] LABS: BASOPHILS PERCENT MAN 0 % (0-2); EOSINOPHILS ABSOLUTE MAN 0.15 K/mm3 (0.00-0.68); EOSINOPHILS PERCENT MAN 3 % (0-6); LYMPHOCYTES ABSOLUTE MAN 0.36 K/mm3 (0.84-5.20); LYMPHOCYTES PERCENT MAN 7 % (21-46); MONOCYTES ABSOLUTE MAN 0.52 K/mm3 (0.16-1.47); MONOCYTES PERCENT MAN 10 % (4-13); NEUTROPHILS ABSOLUTE MAN 4.22 K/mm3 (1.96-9.15); SEG NEUTROPHILS PERCENT MAN 80 % (41-73); TOTAL CELLS COUNTED 100
[2020-02-15 13:57] LABS: Alanine Aminotransfer (ALT/SGP 16 U/L (12-78); Albumin/Globulin Ratio 0.7 (0.8-1.8); Alk Phos 84 U/L (50-136); Anion Gap 13 mmol/L (6-16); Aspartate Aminotrans (AST/SGOT 15 U/L (12-37); Bilirubin, Total 0.6 mg/dL (0.1-1.0); Blood Urea Nitrogen 10 mg/dL (8-24); CO2, Blood 18 mmol/L (21-32); Calcium, Blood 9.1 mg/dL (8.5-10.1); Chloride, Blood 105 mmol/L (98-108); Creatinine, Blood 0.56 mg/dL (0.40-1.00); Globulin, Blood 4.3 g/dL (2.2-4.0); Glomerular Filtration Rate >60 (60-); Glucose, Blood 120 mg/dL (70-99); Potassium, Blood 2.8 mmol/L (3.5-5.5); Sodium, Blood 136 mmol/L (136-145); Total Protein, Blood 7.3 g/dL (6.4-8.2); Troponin I <0.015 ng/mL (0.000-0.040)
[2020-02-15 14:12] LABS: Influenza A, PCR Negative (NEGATIVE); Influenza B, PCR Negative (NEGATIVE); Resp Syncytial Virus, PCR Negative (NEGATIVE); SARS-Cov-2 (COVID-19) PCR, MMC Negative (NEGATIVE)
[2020-02-15 15:59] LABS: Source, Urine Catheter
[2020-02-15 16:06] LABS: Appearance, Urine Hazy (Clear); Bilirubin, Urine Neg (Neg); Blood, Urine 2+ (Neg); Color, Urine Yellow (P-Yellow); Glucose Qualitative, Urine 1+ (Neg); Ketones, Urine 2+ (Neg); Leukocyte Esterase, Urine 3+ (Neg); Nitrite, Urine Neg (Neg); Protein, Urine Neg (Neg); Specific Gravity, Urine 1.015 (1.003-1.022); Urobilinogen, Urine NORM (Normal)
[2020-02-15 16:13] LABS: Bacteria Many /hpf; White Blood Cells, Urine 50-100 /hpf (0-5)
[2020-02-15 16:14] LABS: Squamous Epithelial Cells Mod /hpf (Few)
[2020-02-15] MEDS ORDERED: TORSE20 PO (16:14)
[2020-02-15] MEDS ORDERED: Lisinopril2.5 MG PO (16:15)
[2020-02-15] MEDS ORDERED: ELIQUIS2.5 MG PO (16:15)
[2020-02-16 04:33] LABS: BASOPHILS ABSOLUTE AUTO 0.01 K/mm3 (0.00-0.23); BASOPHILS PERCENT AUTO 0 % (0-2); EOSINOPHILS ABSOLUTE AUTO 0.09 K/mm3 (0.00-0.68); EOSINOPHILS PERCENT AUTO 2 % (0-6); Hematocrit 34.1 % (33.0-51.0); Hemoglobin 11.5 g/dL (11.5-16.0); IMMATURE GRAN ABSOLUTE AUTO 0.02 K/mm3 (0.00-0.10); IMMATURE GRAN PERCENT AUTO 0 % (0-1); LYMPHOCYTES ABSOLUTE AUTO 1.25 K/mm3 (0.84-5.20); LYMPHOCYTES PERCENT AUTO 26 % (21-46); MONOCYTES ABSOLUTE AUTO 0.62 K/mm3 (0.16-1.47); MONOCYTES PERCENT AUTO 13 % (4-13); Mean Corpuscular HGB Conc 33.7 g/dL (31.5-36.5); Mean Corpuscular Volume 89 fL (80-100); Mean Platelet Volume 9.7 fL (9.1-12.4); NEUTROPHILS ABSOLUTE AUTO 2.75 K/mm3 (1.96-9.15); NEUTROPHILS PERCENT AUTO 58 % (41-73); Platelet Count 275 K/mm3 (150-400); RDW Coefficient Variation 12.7 % (11.7-14.2); RDW Standard Deviation 41.5 fL (35.1-46.3); Red Blood Cell Count 3.83 M/mm3 (3.80-5.20); White Blood Cell Count 4.74 K/mm3 (4.00-11.30)
[2020-02-16 04:55] LABS: Anion Gap 9 mmol/L (6-16); Blood Urea Nitrogen 8 mg/dL (8-24); CO2, Blood 23 mmol/L (21-32); Calcium, Blood 8.9 mg/dL (8.5-10.1); Chloride, Blood 106 mmol/L (98-108); Creatinine, Blood 0.54 mg/dL (0.40-1.00); Glomerular Filtration Rate >60 (60-); Glucose, Blood 89 mg/dL (70-99); Magnesium, Blood 1.9 mg/dL (1.6-2.4); Potassium, Blood 3.5 mmol/L (3.5-5.5); Sodium, Blood 138 mmol/L (136-145)
--- NOTE | 2020-02-16 05:26 | NUR ---
SALES LEDGER CLERK SUMMARY NEW ADMIT FROM THE ED TONIGHT. PT ADMITTED FOR N/V, COLITIS, AND UTI. WHEN PT ARRIVED TO FLOOR SHE COMPLAINED OF NAUSEA AND WAS DRY HEAVING EVEN THOUGH SHE WAS MEDICATED JUST AN HOUR PRIOR. SPOKE WITH REMEDIOS JONES REGARDING UNCONTROLLED N/V, RECIEVED ORDER FOR IV ATIVAN 1MG WHICH HELPED WITH PT'S N/V AND HYPERTENSION. PT WAS ABLE TO GET SEVERAL HOURS OF SLEEP AFTER RECIEVING ATIVAN AND REPORTED GREAT IMPROVEMENT OF NAUSEA. IV FLUIDS RUNNING ALONG WITH ABX ORDERED. PT AAOX4 AND STANDBY ASSIST WHEN OOB. WILL CONTINUE TO MONITOR.
--- NOTE | 2020-02-16 19:33 | NUR ---
PT RESTING IN BED THIS EVENING. IV DC'D ON LAC AND INSERTED ON RHAND. IV ABT RUNNING AND LINE WNL. PT MAKES NO C/O N/V OR PAIN AT THIS TIME. STAFF WILL CONT. TO MONITOR.
[2020-02-17 04:40] LABS: BASOPHILS ABSOLUTE AUTO 0.02 K/mm3 (0.00-0.23); BASOPHILS PERCENT AUTO 0 % (0-2); EOSINOPHILS ABSOLUTE AUTO 0.17 K/mm3 (0.00-0.68); EOSINOPHILS PERCENT AUTO 3 % (0-6); Hematocrit 37.7 % (33.0-51.0); Hemoglobin 12.7 g/dL (11.5-16.0); IMMATURE GRAN ABSOLUTE AUTO 0.02 K/mm3 (0.00-0.10); IMMATURE GRAN PERCENT AUTO 0 % (0-1); LYMPHOCYTES ABSOLUTE AUTO 1.64 K/mm3 (0.84-5.20); LYMPHOCYTES PERCENT AUTO 29 % (21-46); MONOCYTES ABSOLUTE AUTO 0.99 K/mm3 (0.16-1.47); MONOCYTES PERCENT AUTO 18 % (4-13); Mean Corpuscular HGB 29.9 pg (26.0-34.0); Mean Corpuscular HGB Conc 33.7 g/dL (31.5-36.5); Mean Corpuscular Volume 89 fL (80-100); Mean Platelet Volume 9.4 fL (9.1-12.4); NEUTROPHILS ABSOLUTE AUTO 2.77 K/mm3 (1.96-9.15); NEUTROPHILS PERCENT AUTO 49 % (41-73); Platelet Count 295 K/mm3 (150-400); RDW Coefficient Variation 12.5 % (11.7-14.2); RDW Standard Deviation 40.5 fL (35.1-46.3); Red Blood Cell Count 4.25 M/mm3 (3.80-5.20); White Blood Cell Count 5.61 K/mm3 (4.00-11.30)
[2020-02-17 04:53] LABS: Anion Gap 8 mmol/L (6-16); Blood Urea Nitrogen 8 mg/dL (8-24); Bun/Creatinine Ratio 14.7 (12.0-20.0); CO2, Blood 23 mmol/L (21-32); Calcium, Blood 9.1 mg/dL (8.5-10.1); Chloride, Blood 102 mmol/L (98-108); Creatinine, Blood 0.54 mg/dL (0.40-1.00); Glomerular Filtration Rate >60 (60-); Glucose, Blood 104 mg/dL (70-99); Potassium, Blood 2.9 mmol/L (3.5-5.5); Sodium, Blood 133 mmol/L (136-145)
--- NOTE | 2020-02-17 06:01 | NUR ---
SUMMARY PT CONT WITH HTN IMRPOVED SLIGHTLY INTERMITTENTLY. PT TOLERATED NORVASC YESTERDAY WHICH IS HER BASELINE TO TAKE ONLY ONCE IN AM DAILY.HOWEVER,TALKED TO PT ABOUT POSSIBILITY DR MAY NEED TO MAKE ADJUSTMENTS IN MEDS TO KEEP BP CONTROLLED.
[2020-02-17 14:16] LABS: Anion Gap 7 mmol/L (6-16); Blood Urea Nitrogen 10 mg/dL (8-24); Bun/Creatinine Ratio 18.3 (12.0-20.0); CO2, Blood 25 mmol/L (21-32); Chloride, Blood 102 mmol/L (98-108); Creatinine, Blood 0.55 mg/dL (0.40-1.00); Glomerular Filtration Rate >60 (60-); Glucose, Blood 111 mg/dL (70-99); Potassium, Blood 3.5 mmol/L (3.5-5.5); Sodium, Blood 134 mmol/L (136-145)
[2020-02-17] MEDS ORDERED: Ativan1 MG PO (16:35)
--- NOTE | 2020-02-17 17:12 | NUR ---
SHIFT SUMMARY PT RESTING QUIETLY AT START OF SHIFT. DENIED NEEDS AT THAT TIME. REPORTED DOING OK AND TOLERATING CL PO. PT LATER CHANGED HER MIND ON THE NAUSEA AND REQUESTED ATIVAN, AFTER TAKING AM MEDICATIONS. DR YADAV IN TO SEE PT. DIET ORDER CHANGED PER PT REQUEST AND TO SEE IF PT COULD TOLERATE ADVANCED INTAKE FOR D/C HOME. PT ONLY EATING BITES AND DRINKING SM AMTS. PT'S LABS IMPROVED; SEE CHART. DR YADAV HERE AGAIN THIS AFTERNOON TO SEE PT. D/C ORDERS PLACED, PER PT REQUEST. IV SITE D/C'D. D/C INSTRUCTIONS REVIEWED WITH PT AND . HARD SCRIPT GIVEN FOR ATIVAN FOR NAUSEA. PT THEN ASSISTED OUT TO CAR VIA W/C.
== END 2020-02-17 17:07 | disposition home or self-care (01) | DRG 394 ==
LOC: ER 11:56 → MEDS 19:11
PROVIDERS: Family Medicine; Physician Assistant; ADMIT Internal Medicine
DX: K52.1 Toxic gastroenteritis and colitis (principal); C34.31 Malignant neoplasm of lower lobe, right bronchus or lung; E87.6 Hypokalemia; E86.0 Dehydration; Z86.711 Personal history of pulmonary embolism; I10 Essential (primary) hypertension; Z87.891 Personal history of nicotine dependence; Z20.828 Contact with and (suspected) exposure to other viral communicable diseases; Z86.73 Personal history of transient ischemic attack (TIA), and cerebral infarction without residual deficits; I16.0 Hypertensive urgency; Z85.71 Personal history of Hodgkin lymphoma; Z92.21 Personal history of antineoplastic chemotherapy; Z79.01 Long term (current) use of anticoagulants; T45.1X5A Adverse effect of antineoplastic and immunosuppressive drugs, initial encounter
CPT/HCPCS: 0241U; 36415; 51701; 71045; 74176; 80048; 80053; 81001; 83735; 84145; 84484; 85025; 87077; 87086; 87186; 93005; 93010; 96365-59; 96366-59; 96368; 96375-59; 96376-59; 97110; 97116; 97161; 97165; 99285-25; A9270; C9113; J0696; J0780; J1200; J1650; J1956; J2060; J2550; J3480; J7030; J7040

== ENCOUNTER 2020-04-14 18:31 | Emergency (ER) | payer MEDICARE ==
[~2020-04-14] VITALS: Ht 157.5 cm; Wt 71.2 kg
[~2020-04-14 18:31] MED LIST changes: -AMLO10 PO; +Ativan1 MG PO; -CELEXA10 MG PO; +ELIQUIS2.5 MG PO; +Lisinopril2.5 MG PO; -MIRT15 PO; -POTA10T PO; +TORSE20 PO; -XARELTO20 MG PO
[2020-04-14 19:48] LABS: BASOPHILS ABSOLUTE AUTO 0.21 K/mm3 (0.00-0.23); BASOPHILS PERCENT AUTO 1 % (0-2); Hematocrit 27.9 % (33.0-51.0); Hemoglobin 9.6 g/dL (11.5-16.0); Mean Corpuscular HGB 31.5 pg (26.0-34.0); Mean Corpuscular HGB Conc 34.4 g/dL (31.5-36.5); Mean Corpuscular Volume 92 fL (80-100); Mean Platelet Volume 9.3 fL (9.1-12.4); Platelet Count 481 K/mm3 (150-400); RDW Coefficient Variation 18.6 % (11.7-14.2); RDW Standard Deviation 60.1 fL (35.1-46.3); Red Blood Cell Count 3.05 M/mm3 (3.80-5.20); White Blood Cell Count 25.38 K/mm3 (4.00-11.30)
[2020-04-14 19:50] LABS: EOSINOPHILS ABSOLUTE AUTO 0.01 K/mm3 (0.00-0.68); EOSINOPHILS PERCENT AUTO 0 % (0-6); IMMATURE GRAN ABSOLUTE AUTO 5.08 K/mm3 (0.00-0.10); IMMATURE GRAN PERCENT AUTO 20 % (0-1); LYMPHOCYTES ABSOLUTE AUTO 0.87 K/mm3 (0.84-5.20); LYMPHOCYTES PERCENT AUTO 3 % (21-46); MONOCYTES ABSOLUTE AUTO 0.19 K/mm3 (0.16-1.47); MONOCYTES PERCENT AUTO 1 % (4-13); NEUTROPHILS ABSOLUTE AUTO 19.02 K/mm3 (1.96-9.15); NEUTROPHILS PERCENT AUTO 75 % (41-73)
[2020-04-14 20:09] LABS: Alanine Aminotransfer (ALT/SGP 23 U/L (12-78); Albumin, Blood 2.9 g/dL (3.4-5.0); Albumin/Globulin Ratio 0.9 (0.8-1.8); Alk Phos 163 U/L (50-136); Anion Gap 10 mmol/L (6-16); Aspartate Aminotrans (AST/SGOT 34 U/L (12-37); Bilirubin, Total 0.7 mg/dL (0.1-1.0); Blood Urea Nitrogen 15 mg/dL (8-24); Bun/Creatinine Ratio 16.7 (12.0-20.0); CO2, Blood 22 mmol/L (21-32); Calcium, Blood 8.6 mg/dL (8.5-10.1); Chloride, Blood 107 mmol/L (98-108); Globulin, Blood 3.3 g/dL (2.2-4.0); Glomerular Filtration Rate >60 (60-); Glucose, Blood 131 mg/dL (70-99); Potassium, Blood 2.8 mmol/L (3.5-5.5); Sodium, Blood 139 mmol/L (136-145); Total Protein, Blood 6.2 g/dL (6.4-8.2); Troponin I <0.015 ng/mL (0.000-0.040)
[2020-04-14 20:11] LABS: BAND PERCENT MAN 2 % (0-8); BASOPHILS PERCENT MAN 0 % (0-2); EOSINOPHILS PERCENT MAN 0 % (0-6); LYMPHOCYTES ABSOLUTE MAN 0.25 K/mm3 (0.84-5.20); LYMPHOCYTES PERCENT MAN 1 % (21-46); MONOCYTES ABSOLUTE MAN 0.25 K/mm3 (0.16-1.47); MONOCYTES PERCENT MAN 1 % (4-13); NEUTROPHILS ABSOLUTE MAN 24.87 K/mm3 (1.96-9.15); SEG NEUTROPHILS PERCENT MAN 96 % (41-73); TOTAL CELLS COUNTED 100
[2020-04-14] MEDS ORDERED: AMLO10 PO (20:15)
[2020-04-14] MEDS ORDERED: MIRT15 PO (20:16)
[2020-04-14] MEDS ORDERED: CELEXA10 MG PO (20:16)
[2020-04-14] MEDS ORDERED: POTA10T PO (20:17)
[2020-04-14] MEDS ORDERED: FOLI1 PO (20:17)
[2020-04-14] MEDS ORDERED: XARELTO20 MG PO (20:18)
[2020-04-14] MEDS ORDERED: Ativan1 MG PO (20:53)
[2020-06-13] MEDS ORDERED: Hair, Skin & N1 EACH PO (11:07)
== END 2020-04-14 21:16 | disposition home or self-care (01) ==
LOC: ER 18:31
PROVIDERS: Emergency Medicine
DX: R11.2 Nausea with vomiting, unspecified (principal); E87.6 Hypokalemia; D64.9 Anemia, unspecified; R10.84 Generalized abdominal pain; I10 Essential (primary) hypertension; Z79.01 Long term (current) use of anticoagulants; Z88.2 Allergy status to sulfonamides; Z88.6 Allergy status to analgesic agent; Z87.891 Personal history of nicotine dependence
CPT/HCPCS: 36415; 71045; 80053; 83735; 83880; 84484; 85025; 93005; 93010; 96374; 99283-25; A9270; J2060

== ENCOUNTER 2020-04-16 09:23 | Emergency (ER) | payer MEDICARE ==
[~2020-04-16] VITALS: Ht 157.5 cm; Wt 71.2 kg
[~2020-04-16 09:23] MED LIST changes: +AMLO10 PO; +CELEXA10 MG PO; +FOLI1 PO; +MIRT15 PO; +POTA10T PO; +XARELTO20 MG PO
[2020-04-17] MEDS ORDERED: PHENERGAN25 MG PR (11:32)
[2020-04-17] MEDS ORDERED: PROM25 PO (11:32)
[2020-06-13] MEDS ORDERED: Hair, Skin & N1 EACH PO (11:07)
== END 2020-04-16 11:49 | disposition left against medical advice (07) ==
LOC: ER 09:23
DX: R06.02 Shortness of breath (principal); R11.0 Nausea; Z53.21 Procedure and treatment not carried out due to patient leaving prior to being seen by health care provider
CPT/HCPCS: 36415; 93005; 93010; 99283-25

== ENCOUNTER 2020-04-17 08:54 | Emergency (ER) | payer MEDICARE ==
[~2020-04-17] VITALS: Ht 157.5 cm; Wt 70.3 kg
[2020-04-17 09:36] LABS: Hematocrit 26.2 % (33.0-51.0); Hemoglobin 8.8 g/dL (11.5-16.0); Mean Corpuscular HGB 30.8 pg (26.0-34.0); Mean Corpuscular HGB Conc 33.6 g/dL (31.5-36.5); Mean Corpuscular Volume 92 fL (80-100); Mean Platelet Volume 10.1 fL (9.1-12.4); Platelet Count 247 K/mm3 (150-400); RDW Coefficient Variation 17.4 % (11.7-14.2); Red Blood Cell Count 2.86 M/mm3 (3.80-5.20); White Blood Cell Count 5.23 K/mm3 (4.00-11.30)
[2020-04-17 10:09] LABS: Alanine Aminotransfer (ALT/SGP 34 U/L (12-78); Albumin, Blood 3.3 g/dL (3.4-5.0); Albumin/Globulin Ratio 0.9 (0.8-1.8); Alk Phos 144 U/L (50-136); Anion Gap 9 mmol/L (6-16); Aspartate Aminotrans (AST/SGOT 42 U/L (12-37); Bilirubin, Total 1.4 mg/dL (0.1-1.0); Blood Urea Nitrogen 16 mg/dL (8-24); Bun/Creatinine Ratio 20.7 (12.0-20.0); CO2, Blood 26 mmol/L (21-32); Calcium, Blood 8.8 mg/dL (8.5-10.1); Chloride, Blood 100 mmol/L (98-108); Creatinine, Blood 0.77 mg/dL (0.40-1.00); Globulin, Blood 3.7 g/dL (2.2-4.0); Glomerular Filtration Rate >60 (60-); Glucose, Blood 88 mg/dL (70-99); Sodium, Blood 135 mmol/L (136-145)
[2020-04-17 10:46] LABS: BASOPHILS PERCENT MAN 0 % (0-2); EOSINOPHILS ABSOLUTE MAN 0.05 K/mm3 (0.00-0.68); EOSINOPHILS PERCENT MAN 1 % (0-6); LYMPHOCYTES ABSOLUTE MAN 1.09 K/mm3 (0.84-5.20); LYMPHOCYTES PERCENT MAN 21 % (21-46); MONOCYTES PERCENT MAN 4 % (4-13); NEUTROPHILS ABSOLUTE MAN 3.87 K/mm3 (1.96-9.15); SEG NEUTROPHILS PERCENT MAN 74 % (41-73); TOTAL CELLS COUNTED 100
[2020-04-17] MEDS ORDERED: PHENERGAN25 MG PR (11:32)
[2020-04-17] MEDS ORDERED: PROM25 PO (11:32)
[2020-06-13] MEDS ORDERED: Hair, Skin & N1 EACH PO (11:07)
== END 2020-04-17 12:05 | disposition home or self-care (01) ==
LOC: ER 08:54
PROVIDERS: Emergency Medicine
DX: E87.6 Hypokalemia (principal); R11.2 Nausea with vomiting, unspecified; D64.9 Anemia, unspecified; I10 Essential (primary) hypertension; Z88.6 Allergy status to analgesic agent; Z88.2 Allergy status to sulfonamides; Z79.01 Long term (current) use of anticoagulants; Z79.899 Other long term (current) drug therapy; Z87.891 Personal history of nicotine dependence
CPT/HCPCS: 36415; 80053; 85025; 96361; 96374; 99284-25; A9270; J2405; J7030

== ENCOUNTER 2020-04-21 15:55 | Inpatient (IN) | payer MEDICARE ==
[~2020-04-21] VITALS: Ht 157.5 cm; Wt 70.2 kg
[~2020-04-21 15:55] MED LIST changes: +PHENERGAN25 MG PR; +PROM25 PO
[2020-04-21 16:37] LABS: Hematocrit 22.1 % (33.0-51.0); Hemoglobin 7.9 g/dL (11.5-16.0); Mean Corpuscular HGB 31.5 pg (26.0-34.0); Mean Corpuscular HGB Conc 35.7 g/dL (31.5-36.5); Mean Corpuscular Volume 88 fL (80-100); Mean Platelet Volume 10.8 fL (9.1-12.4); Platelet Count 127 K/mm3 (150-400); Red Blood Cell Count 2.51 M/mm3 (3.80-5.20); White Blood Cell Count 5.52 K/mm3 (4.00-11.30)
[2020-04-21 16:56] LABS: Albumin, Blood 3.4 g/dL (3.4-5.0); Albumin/Globulin Ratio 1.1 (0.8-1.8); Bun/Creatinine Ratio 13.8 (12.0-20.0); Creatinine, Blood 1.09 mg/dL (0.40-1.00); Globulin, Blood 3.2 g/dL (2.2-4.0); Potassium, Blood 2.6 mmol/L (3.5-5.5); Total Protein, Blood 6.6 g/dL (6.4-8.2)
[2020-04-21 17:02] LABS: Magnesium, Blood 1.1 mg/dL (1.6-2.4)
[2020-04-21 17:13] LABS: BASOPHILS ABSOLUTE MAN 0.16 K/mm3 (0.00-0.23); BASOPHILS PERCENT MAN 3 % (0-2); EOSINOPHILS ABSOLUTE MAN 0.11 K/mm3 (0.00-0.68); EOSINOPHILS PERCENT MAN 2 % (0-6); LYMPHOCYTES ABSOLUTE MAN 1.38 K/mm3 (0.84-5.20); LYMPHOCYTES PERCENT MAN 25 % (21-46); MONOCYTES ABSOLUTE MAN 0.22 K/mm3 (0.16-1.47); MONOCYTES PERCENT MAN 4 % (4-13); NEUTROPHILS ABSOLUTE MAN 3.64 K/mm3 (1.96-9.15); SEG NEUTROPHILS PERCENT MAN 66 % (41-73); TOTAL CELLS COUNTED 100
[2020-04-21 22:33] LABS: Bun/Creatinine Ratio 14.7 (12.0-20.0); Calcium, Blood 9.1 mg/dL (8.5-10.1); Creatinine, Blood 1.02 mg/dL (0.40-1.00); Potassium, Blood 2.6 mmol/L (3.5-5.5)
--- NOTE | 2020-04-21 23:20 | NUR ---
CALLED DR SANTIAGO REGARDING PT'S LOW POTASSIUM LABS OF 2.6. DR SANTIAGO SAID THAT SHE WOULD PUT FURTHER ORDERS IN FOR PT.
[2020-04-22 04:39] LABS: BASOPHILS ABSOLUTE AUTO 0.08 K/mm3 (0.00-0.23); BASOPHILS PERCENT AUTO 1 % (0-2); Hematocrit 18.7 % (33.0-51.0); Hemoglobin 6.7 g/dL (11.5-16.0); LYMPHOCYTES ABSOLUTE AUTO 1.43 K/mm3 (0.84-5.20); LYMPHOCYTES PERCENT AUTO 25 % (21-46); MONOCYTES ABSOLUTE AUTO 0.84 K/mm3 (0.16-1.47); MONOCYTES PERCENT AUTO 15 % (4-13); Mean Corpuscular HGB 31.5 pg (26.0-34.0); Mean Corpuscular HGB Conc 35.8 g/dL (31.5-36.5); Mean Corpuscular Volume 88 fL (80-100); Mean Platelet Volume 11.3 fL (9.1-12.4); Platelet Count 82 K/mm3 (150-400); RDW Coefficient Variation 16.3 % (11.7-14.2); RDW Standard Deviation 51.9 fL (35.1-46.3); Red Blood Cell Count 2.13 M/mm3 (3.80-5.20); White Blood Cell Count 5.72 K/mm3 (4.00-11.30)
[2020-04-22 04:41] LABS: EOSINOPHILS PERCENT AUTO 2 % (0-6); IMMATURE GRAN ABSOLUTE AUTO 0.06 K/mm3 (0.00-0.10); IMMATURE GRAN PERCENT AUTO 1 % (0-1); NEUTROPHILS ABSOLUTE AUTO 3.21 K/mm3 (1.96-9.15); NEUTROPHILS PERCENT AUTO 56 % (41-73)
[2020-04-22 05:02] LABS: Bun/Creatinine Ratio 14.3 (12.0-20.0); Creatinine, Blood 0.98 mg/dL (0.40-1.00); Magnesium, Blood 1.8 mg/dL (1.6-2.4); Phosphorus, Blood 3.1 mg/dL (2.5-4.9); Potassium, Blood 2.6 mmol/L (3.5-5.5)
--- NOTE | 2020-04-22 06:26 | NUR ---
CALLED MAAME REGARDING PT HGB DROPPING FROM 7.9 TO 6.7; ORDERED 1 UNIT OF RBC; PT HAS NOT VOIDED SINCE ADMIT, BLADDER SCAN 510 AND IS UNABLE TO VOID, ORDERED FOR MOJICA CATH TO BE PLACED; K+ WAS 2.6 AFTER 80 MEQS OF PO IN PAST 12 HOURS, ORDERED KCL 40 IV X1.
--- NOTE | 2020-04-22 06:30 | NUR ---
SHIFT SUMMARY PT A/O. VS HAVE BEEN STABLE. LABS HAVE SHOWN LOW K+. PT HAD NOT VOIDED SINCE ADMIT AND CATHETER WAS PLACED PER ORDER. PT HAS REPORTED NO PAIN. SOB WITH EXERTION SHE STATES THAT HAS BEEN GOING ON FOR A YEAR. HGB WAS NOW DROPPIN FROM 7.9 TO 6.7 DUE SHE STATES DUE TO CHEMO.
[2020-04-22 06:38] LABS: Source, Urine Catheter
[2020-04-22 06:47] LABS: Appearance, Urine Clear (Clear); Bilirubin, Urine Neg (Neg); Blood, Urine 1+ (Neg); Color, Urine Yellow (P-Yellow); Glucose Qualitative, Urine Neg (Neg); Ketones, Urine 3+ (Neg); Leukocyte Esterase, Urine 1+ (Neg); Nitrite, Urine Neg (Neg); Protein, Urine 2+ (Neg); Urobilinogen, Urine NORM (Normal); pH, Urine 6.5 (5.0-8.0)
[2020-04-22 07:14] LABS: Red Blood Cells, Urine 0-2 /hpf (0-2)
[2020-04-22 07:15] LABS: Bacteria Mod /hpf; Squamous Epithelial Cells Few /hpf (Few)
--- NOTE | 2020-04-22 15:27 | NUR ---
ADMIT: 04/21/20 DISCHARGE: DX: hypomagesemia CC: kwilcox ADMIT: 12/30/19 DISCHARGE: 01/10/20 DX: NAUSEA AND VOMITING CC: KWILCOX ADMIT: 12/27/19 DISCHARGE: 12/29/19 DX: ABD PAIN CC: CPEABODY ARIANA CALL: MET CYNDEE MARTIN AND AT DISCHARGE, CALL HER AT HOME FOR ARIANA RESIDENCE: Home with Spouse CAREGIVER: Wally Dotson, Spouse / Partner, DX: non-hodgkin's lymphoma, HTN, Adenocarcinoma of lung DME: shower chair CCM: none HOME HEALTH: none SUMMARY: Admit: 04/21/20 04/22/20- per chart review with Dr. Del Angel, pt has metastatic lung cancern with chemo induced nausea/vomiting. She required a blood transfusion today. Per Dr. Del Angel, pt could potentially be discharged on Wednesday. -celsa
--- NOTE | 2020-04-22 19:45 | NUR ---
SUMMARY NO ACUTE CHANGES NOTED THROUGH THE DAY. PT REMAINS ON BEDREST, ROOM AIR, VSS. 1 UNIT PRBC'S INFUSED PER ORDERS. NO REACTIONS NOTED. PT IS TOLERATING PO INTAKE, NO NAUSEA. MOJICA REMAINS PATENT, CLEAR YELLOW URINE NOTED. REPORT GIVEN TO RISHABH CUMMINS. CALL LIGHT IN REACH.
--- NOTE | 2020-04-23 05:08 | NUR ---
SHIFT SUMMARY PT WAS PLEASENT AND COOPERATIVE WITH CARE. ALERT AND ORIENTED. PT HAD A QUIET, RESTFUL NIGHT. VITALS WERE STABLE, BP 119-136 SYSTOLIC. HR 70-80'S. O2 SATS >95% ON ROOM AIR. PT STATED WANTING THE MOJICA CATH OUT SHE FEEL LIKE SHE IS STRONG ENOUGH TO AMBULATE TO THE TOILET AND SHE HAS NEVER HAD AN ISSUE WITH RETENTION IN THE PAST. PT HAD AN UNEVENTFUL NIGHT WITH IMPROVEMENT.
[2020-04-23 08:06] LABS: Hemoglobin 8.1 g/dL (11.5-16.0); Mean Corpuscular HGB Conc 33.8 g/dL (31.5-36.5); Mean Corpuscular Volume 92 fL (80-100); Mean Platelet Volume 10.7 fL (9.1-12.4); Platelet Count 60 K/mm3 (150-400); RDW Coefficient Variation 17.2 % (11.7-14.2); Red Blood Cell Count 2.61 M/mm3 (3.80-5.20); White Blood Cell Count 5.53 K/mm3 (4.00-11.30)
[2020-04-23 08:25] LABS: Blood Urea Nitrogen 10 mg/dL (8-24); Bun/Creatinine Ratio 13.1 (12.0-20.0); CO2, Blood 27 mmol/L (21-32); Calcium, Blood 8.3 mg/dL (8.5-10.1); Chloride, Blood 110 mmol/L (98-108); Creatinine, Blood 0.76 mg/dL (0.40-1.00); Glomerular Filtration Rate >60 (60-); Glucose, Blood 77 mg/dL (70-99)
[2020-04-23 08:26] LABS: Anion Gap 4 mmol/L (6-16); Potassium, Blood 4.6 mmol/L (3.5-5.5); Sodium, Blood 141 mmol/L (136-145)
--- NOTE | 2020-04-23 18:47 | NUR ---
SHIFT SUMMARY PT A&Ox4; CALM AND COOPERATIVE WITH CARE. PT RESTING IN BED DURING SHIFT. UP TO CHAIR FOR APPROX AN HOUR WITH 1 PERSON ASSIST. PT SOB AT REST AND INCREASED SOB WITH ACTIVITY; PT STATES THIS IS BASELINE FOR HER. SPO2 >90% ON RA. PT DENIES PAIN, CHEST PAIN, NASUEA AND DIZZINESS. MOJICA REMOVED DURING SHIFT PER ORDERS, PT VOIDED AFTER REMOVAL. VSS. NO OTHER ACUTE CHAGNES NOTED DUIRNG SHIFT. WILL CONTINUE TO MONITOR UNITL REPORT GIVEN TO ONCOMING RN.
[2020-04-24 04:12] LABS: BASOPHILS ABSOLUTE AUTO 0.11 K/mm3 (0.00-0.23); BASOPHILS PERCENT AUTO 1 % (0-2); Hematocrit 23.4 % (33.0-51.0); LYMPHOCYTES ABSOLUTE AUTO 1.88 K/mm3 (0.84-5.20); LYMPHOCYTES PERCENT AUTO 22 % (21-46); MONOCYTES ABSOLUTE AUTO 0.88 K/mm3 (0.16-1.47); MONOCYTES PERCENT AUTO 10 % (4-13); Mean Corpuscular HGB 31.4 pg (26.0-34.0); Mean Corpuscular HGB Conc 34.2 g/dL (31.5-36.5); Mean Corpuscular Volume 92 fL (80-100); Mean Platelet Volume 10.7 fL (9.1-12.4); Platelet Count 56 K/mm3 (150-400); RDW Coefficient Variation 16.9 % (11.7-14.2); RDW Standard Deviation 55.9 fL (35.1-46.3); Red Blood Cell Count 2.55 M/mm3 (3.80-5.20); White Blood Cell Count 8.43 K/mm3 (4.00-11.30)
[2020-04-24 04:16] LABS: EOSINOPHILS PERCENT AUTO 2 % (0-6); IMMATURE GRAN ABSOLUTE AUTO 0.37 K/mm3 (0.00-0.10); IMMATURE GRAN PERCENT AUTO 4 % (0-1); NEUTROPHILS ABSOLUTE AUTO 4.99 K/mm3 (1.96-9.15); NEUTROPHILS PERCENT AUTO 59 % (41-73)
[2020-04-24 04:24] LABS: Anion Gap 6 mmol/L (6-16); Blood Urea Nitrogen 10 mg/dL (8-24); Bun/Creatinine Ratio 12.2 (12.0-20.0); CO2, Blood 26 mmol/L (21-32); Calcium, Blood 8.3 mg/dL (8.5-10.1); Chloride, Blood 104 mmol/L (98-108); Creatinine, Blood 0.82 mg/dL (0.40-1.00); Glomerular Filtration Rate >60 (60-); Glucose, Blood 75 mg/dL (70-99); Sodium, Blood 136 mmol/L (136-145)
[2020-04-24 04:34] LABS: BAND PERCENT MAN 5 % (0-8); BASOPHILS PERCENT MAN 0 % (0-2); EOSINOPHILS ABSOLUTE MAN 0.16 K/mm3 (0.00-0.68); EOSINOPHILS PERCENT MAN 2 % (0-6); LYMPHOCYTES ABSOLUTE MAN 1.85 K/mm3 (0.84-5.20); LYMPHOCYTES PERCENT MAN 22 % (21-46); METAMYELOCYTE ABSOLUTE MAN 0.08 K/mm3 (0.00-0.00); METAMYELOCYTE PERCENT MAN 1 % (0-0); MONOCYTES ABSOLUTE MAN 0.67 K/mm3 (0.16-1.47); MONOCYTES PERCENT MAN 8 % (4-13); MYELOCYTE ABSOLUTE MAN 0.08 K/mm3 (0.00-0.00); MYELOCYTE PERCENT MAN 1 % (0-0); NEUTROPHILS ABSOLUTE MAN 5.56 K/mm3 (1.96-9.15); SEG NEUTROPHILS PERCENT MAN 61 % (41-73); TOTAL CELLS COUNTED 100
--- NOTE | 2020-04-24 05:06 | NUR ---
SHIFT SUMMARY - NO ACUTE CHANGES THROUGHOUT THE NIGHT. PT SLEPT THROUGHOUT MOST OF THE NIGHT. RONALD RODRIGUEZ REMOVED THIS AM, PER PT REQUEST. PT HAS BEEN UP WITH A SBA TO BSC. PT HASN'T REPORTED ANY COMPLAINTS OF PAIN OR DISCOMFORT THROUGHOUT THE NIGHT. FLUIDS AT BEDSIDE. CALL LIGHT WITHIN REACH. BED ALARM ON FOR PATIENT SAFETY - DOOR CLOSED PER PT REQUEST. BED IN LOW POSITION.
[2020-04-24] MEDS ORDERED: FAMO20 PO (09:06)
[2020-04-24] MEDS ORDERED: K-Phos Origina500 MG PO (09:07)
[2020-04-24] MEDS ORDERED: SENN187 PO (09:08)
[2020-04-24] MEDS ORDERED: PROM25 PO (09:08)
[2020-04-24] MEDS ORDERED: MAG-OXIDE MAGN200 MG PO (12:50)
--- NOTE | 2020-04-24 15:12 | NUR ---
SHIFT SUMMARY PT A&Ox4; CALM AND COOPERATIVER WITH CARE. PT RESTING IN BED FOR MAJORITY OF SHIFT, SBA TO BATHROOM AND UP IN CHAIR FOR MEALS. PT SOB AT REST AND INCREASED WITH ACTIVITY, PT REPORTS THIS IS BASELINE FOR HER; SPO2 >90% ON RA. PT DENIES PAIN, CHEST PAIN, NAUSEA AND DIZZINESS T/O SHIFT. VSS. NO OTHER ACUTE CHANGES NOTED DURING SHIFT. PT EDUCATED ON DISCHRAGE INSTRUCTIONS, FOLLOW UP APPOINTMENT AND MEDICATIONS. PRESCRIPTIONS FAXED TO [facility] IN [place]. PT LEFT ROOM VIA WHEELCHAIR AT 1450.
[2020-06-13] MEDS ORDERED: Hair, Skin & N1 EACH PO (11:07)
== END 2020-04-24 14:50 | disposition home or self-care (01) | DRG 640 ==
LOC: ER 15:55 → PCU 19:42
PROVIDERS: Internal Medicine; Physician Assistant; ADMIT Hospitalist
PROC: 30233N1 Transfusion of Nonautologous Red Blood Cells into Peripheral Vein, Percutaneous Approach (ICD-10-PCS; principal; 2020-04-22)
DX: E83.42 Hypomagnesemia (principal); E43 Unspecified severe protein-calorie malnutrition; E87.1 Hypo-osmolality and hyponatremia; N17.9 Acute kidney failure, unspecified; C34.90 Malignant neoplasm of unspecified part of unspecified bronchus or lung; C78.1 Secondary malignant neoplasm of mediastinum; E87.6 Hypokalemia; I10 Essential (primary) hypertension; D64.81 Anemia due to antineoplastic chemotherapy; T45.1X5A Adverse effect of antineoplastic and immunosuppressive drugs, initial encounter; R11.2 Nausea with vomiting, unspecified; R94.31 Abnormal electrocardiogram [ECG] [EKG]; E83.39 Other disorders of phosphorus metabolism; D69.59 Other secondary thrombocytopenia; Z86.73 Personal history of transient ischemic attack (TIA), and cerebral infarction without residual deficits; Z68.26 Body mass index [BMI] 26.0-26.9, adult; Z86.711 Personal history of pulmonary embolism; Z87.891 Personal history of nicotine dependence; Z85.72 Personal history of non-Hodgkin lymphomas; Z88.2 Allergy status to sulfonamides; Z88.8 Allergy status to other drugs, medicaments and biological substances; Z79.899 Other long term (current) drug therapy; Z79.01 Long term (current) use of anticoagulants
CPT/HCPCS: 36415; 36430; 51702; 71045; 80048; 80053; 81001; 83690; 83735; 84100; 85025; 85027; 86850; 86900; 86901; 86923; 93005; 93010; 96365; 96366; 99285-25; A9270; C1751; J3475; J3480; J7030; P9016

== ENCOUNTER 2020-06-18 06:09 | Day surgery (SDC) | payer MEDICARE ==
[~2020-06-18] VITALS: Ht 157.5 cm; Wt 69.4 kg
[~2020-06-18 06:09] MED LIST changes: +FAMO20 PO; +K-Phos Origina500 MG PO; +MAG-OXIDE MAGN200 MG PO; +MULVITA PO
--- NOTE | 2020-06-18 06:58 | NUR ---
TO DAY SURGERY. CONFIRMED SURGERY AND SURGEON. RT ARM AND RIGHT BREAT RED AND SLIGHT SWOLLEN. PT STATES IT DEVELOPED AFTER 2ND COVID VACINATION LAST WEDNESDAY. PRE OP TEACHING DONE. LUNGS WITH INS AND EXP WHEEZES IN UPPER LOBES AND RT LOWER LOBE
--- NOTE | 2020-06-18 08:15 | NUR ---
06/18/20 0815 Deirdre Reynoso A 10ML 1% LIDOCAINE GIVEN INCONJUNCTION WITH THE 0.5% BUPIVICAINE. ALL COUNTS CORRECT.
--- NOTE | 2020-06-18 10:46 | NUR ---
Patient up to Ambulate independently. Gait steady.ROOM AIR. VSS. RLL LUNG SOUND REMAINS DIMINISHED. Discharge instructions reviewed with patient. Patient verbalizes understanding. Copy given to patient to take home.PLEUREX BOTTLES AND AT HOME CARE KIT WITH PT AT DISCHARGE. Discharged via wheelchair to private car for ride home WITH .
== END 2020-06-18 10:50 | disposition home or self-care (01) ==
LOC: ORSCMMR 06:09 → ORD 07:30 → ORSCMMR 07:30
PROVIDERS: Surgery
PROC: 0W993ZZ Drainage of Right Pleural Cavity, Percutaneous Approach (ICD-10-PCS; principal; 2020-06-18 07:30)
DX: C34.01 Malignant neoplasm of right main bronchus (principal); J91.0 Malignant pleural effusion; I10 Essential (primary) hypertension; J44.9 Chronic obstructive pulmonary disease, unspecified; Z87.891 Personal history of nicotine dependence; M79.7 Fibromyalgia; Z79.899 Other long term (current) drug therapy
CPT/HCPCS: 71045; C1729; J0690; J1100; J2250; J2370; J2405; J2704; J3010; J7120

== ENCOUNTER 2020-06-25 14:00 | Emergency (ER) | payer MEDICARE ==
[~2020-06-25] VITALS: Ht 157.5 cm; Wt 68.0 kg
[~2020-06-25 14:00] MED LIST changes: +Hair, Skin & N1 EACH PO; -MULVITA PO
== END 2020-06-25 18:01 | disposition home or self-care (01) ==
LOC: ER 14:00
DX: T81.82XA Emphysema (subcutaneous) resulting from a procedure, initial encounter (principal); I10 Essential (primary) hypertension; Z79.01 Long term (current) use of anticoagulants; Z88.2 Allergy status to sulfonamides; Z88.1 Allergy status to other antibiotic agents; Z79.899 Other long term (current) drug therapy; Z86.73 Personal history of transient ischemic attack (TIA), and cerebral infarction without residual deficits; Z87.891 Personal history of nicotine dependence
CPT/HCPCS: 71045; 99284-25

== ENCOUNTER 2020-07-07 14:23 | Emergency (ER) | payer MEDICARE ==
[~2020-07-07] VITALS: Ht 157.5 cm; Wt 65.8 kg
[2020-07-07 14:50] LABS: BASOPHILS ABSOLUTE AUTO 0.07 K/mm3 (0.00-0.23); BASOPHILS PERCENT AUTO 1 % (0-2); EOSINOPHILS PERCENT AUTO 1 % (0-6); Hematocrit 23.2 % (33.0-51.0); Hemoglobin 7.8 g/dL (11.5-16.0); IMMATURE GRAN ABSOLUTE AUTO 0.09 K/mm3 (0.00-0.10); IMMATURE GRAN PERCENT AUTO 1 % (0-1); LYMPHOCYTES ABSOLUTE AUTO 0.39 K/mm3 (0.84-5.20); LYMPHOCYTES PERCENT AUTO 3 % (21-46); MONOCYTES ABSOLUTE AUTO 0.77 K/mm3 (0.16-1.47); MONOCYTES PERCENT AUTO 6 % (4-13); Mean Corpuscular HGB 32.1 pg (26.0-34.0); Mean Corpuscular HGB Conc 33.6 g/dL (31.5-36.5); Mean Corpuscular Volume 96 fL (80-100); Mean Platelet Volume 9.3 fL (9.1-12.4); NEUTROPHILS ABSOLUTE AUTO 10.71 K/mm3 (1.96-9.15); NEUTROPHILS PERCENT AUTO 88 % (41-73); Platelet Count 513 K/mm3 (150-400); RDW Coefficient Variation 12.7 % (11.7-14.2); RDW Standard Deviation 44.1 fL (35.1-46.3); Red Blood Cell Count 2.43 M/mm3 (3.80-5.20); White Blood Cell Count 12.13 K/mm3 (4.00-11.30)
[2020-07-07 15:11] LABS: Alanine Aminotransfer (ALT/SGP 12 U/L (12-78); Albumin, Blood 2.3 g/dL (3.4-5.0); Albumin/Globulin Ratio 0.5 (0.8-1.8); Alk Phos 97 U/L (50-136); Anion Gap 11 mmol/L (6-16); Aspartate Aminotrans (AST/SGOT 17 U/L (12-37); Bilirubin, Total 0.4 mg/dL (0.1-1.0); Blood Urea Nitrogen 7 mg/dL (8-24); Bun/Creatinine Ratio 11.7 (12.0-20.0); CO2, Blood 23 mmol/L (21-32); Calcium, Blood 9.2 mg/dL (8.5-10.1); Chloride, Blood 101 mmol/L (98-108); Globulin, Blood 4.8 g/dL (2.2-4.0); Glomerular Filtration Rate >60 (60-); Glucose, Blood 140 mg/dL (70-99); Potassium, Blood 3.5 mmol/L (3.5-5.5); Sodium, Blood 135 mmol/L (136-145); Total Protein, Blood 7.1 g/dL (6.4-8.2); Troponin I <0.015 ng/mL (0.000-0.040)
[2020-07-07 16:41] LABS: Source, Urine Voided
[2020-07-07 16:45] LABS: Appearance, Urine Clear (Clear); Bilirubin, Urine Neg (Neg); Blood, Urine Neg (Neg); Color, Urine Yellow (P-Yellow); Glucose Qualitative, Urine Neg (Neg); Ketones, Urine 4+ (Neg); Leukocyte Esterase, Urine 1+ (Neg); Nitrite, Urine Neg (Neg); Protein, Urine Neg (Neg); Specific Gravity, Urine 1.015 (1.003-1.022); Urobilinogen, Urine NORM (Normal)
[2020-07-07 16:59] LABS: Squamous Epithelial Cells Few /hpf (Few)
[2020-07-07 17:00] LABS: Bacteria Few /hpf; Hyaline Casts 0-2 /lpf (0-2); Mucus Light (0-Heavy)
[2020-07-07] MEDS ORDERED: HYDR1TAB94 PO (17:17)
[2020-07-07] MEDS ORDERED: ONDA4ODT SL (17:17)
[2020-07-08 16:52] LABS: Percent Saturation 14.2 % (15.0-50.0)
== END 2020-07-07 17:40 | disposition home or self-care (01) ==
LOC: ER 14:23
PROVIDERS: Emergency Medicine; Registered Nurse Oncology
DX: C34.90 Malignant neoplasm of unspecified part of unspecified bronchus or lung (principal); Z99.2 Dependence on renal dialysis; Z92.21 Personal history of antineoplastic chemotherapy
CPT/HCPCS: 36415; 51701; 71046; 80053; 81001; 82728; 83540; 83550; 83605; 83690; 84484; 85025; 87040; 87086; 93005; 93010; 96374; 99285-25; J3010; J7030

== ENCOUNTER 2020-07-09 16:10 | Emergency (ER) | payer MEDICARE ==
[~2020-07-09] VITALS: Ht 157.5 cm; Wt 54.9 kg
[~2020-07-09 16:10] MED LIST changes: +HYDR1TAB94 PO; +ONDA4ODT SL
[2020-07-09 16:33] LABS: BASOPHILS ABSOLUTE AUTO 0.05 K/mm3 (0.00-0.23); BASOPHILS PERCENT AUTO 1 % (0-2); EOSINOPHILS ABSOLUTE AUTO 0.07 K/mm3 (0.00-0.68); EOSINOPHILS PERCENT AUTO 1 % (0-6); Hematocrit 31.1 % (33.0-51.0); Hemoglobin 10.5 g/dL (11.5-16.0); IMMATURE GRAN ABSOLUTE AUTO 0.06 K/mm3 (0.00-0.10); IMMATURE GRAN PERCENT AUTO 1 % (0-1); LYMPHOCYTES ABSOLUTE AUTO 0.38 K/mm3 (0.84-5.20); LYMPHOCYTES PERCENT AUTO 4 % (21-46); MONOCYTES ABSOLUTE AUTO 0.82 K/mm3 (0.16-1.47); MONOCYTES PERCENT AUTO 8 % (4-13); Mean Corpuscular HGB 32.1 pg (26.0-34.0); Mean Corpuscular HGB Conc 33.8 g/dL (31.5-36.5); Mean Corpuscular Volume 95 fL (80-100); Mean Platelet Volume 8.8 fL (9.1-12.4); NEUTROPHILS ABSOLUTE AUTO 9.06 K/mm3 (1.96-9.15); NEUTROPHILS PERCENT AUTO 87 % (41-73); Platelet Count 499 K/mm3 (150-400); RDW Coefficient Variation 12.7 % (11.7-14.2); RDW Standard Deviation 44.3 fL (35.1-46.3); Red Blood Cell Count 3.27 M/mm3 (3.80-5.20); White Blood Cell Count 10.44 K/mm3 (4.00-11.30)
[2020-07-09 16:54] LABS: Alanine Aminotransfer (ALT/SGP 14 U/L (12-78); Albumin, Blood 2.4 g/dL (3.4-5.0); Albumin/Globulin Ratio 0.5 (0.8-1.8); Alk Phos 92 U/L (50-136); Anion Gap 10 mmol/L (6-16); Aspartate Aminotrans (AST/SGOT 16 U/L (12-37); Bilirubin, Total 0.4 mg/dL (0.1-1.0); Blood Urea Nitrogen 9 mg/dL (8-24); Bun/Creatinine Ratio 12.1 (12.0-20.0); CO2, Blood 25 mmol/L (21-32); Calcium, Blood 9.1 mg/dL (8.5-10.1); Chloride, Blood 97 mmol/L (98-108); Creatinine, Blood 0.74 mg/dL (0.40-1.00); Globulin, Blood 4.7 g/dL (2.2-4.0); Glomerular Filtration Rate >60 (60-); Glucose, Blood 118 mg/dL (70-99); Potassium, Blood 3.4 mmol/L (3.5-5.5); Sodium, Blood 132 mmol/L (136-145); Total Protein, Blood 7.1 g/dL (6.4-8.2); Troponin I <0.015 ng/mL (0.000-0.040)
[2020-07-09] MEDS ORDERED: PROM25 PO (19:55)
== END 2020-07-09 20:07 | disposition home or self-care (01) ==
LOC: ER 16:10
PROVIDERS: Emergency Medicine
DX: J90 Pleural effusion, not elsewhere classified (principal); R11.2 Nausea with vomiting, unspecified; I10 Essential (primary) hypertension; Z88.6 Allergy status to analgesic agent; Z88.2 Allergy status to sulfonamides; Z88.3 Allergy status to other anti-infective agents; Z79.01 Long term (current) use of anticoagulants; Z86.73 Personal history of transient ischemic attack (TIA), and cerebral infarction without residual deficits; Z87.891 Personal history of nicotine dependence
CPT/HCPCS: 71045; 80053; 84484; 85025; 93005; 93010; 96374; 96375; 99285-25; J1200; J2405; J2765

== ENCOUNTER 2020-07-12 12:01 | Emergency (ER) | payer MEDICARE ==
[~2020-07-12] VITALS: Ht 162.6 cm; Wt 61.2 kg
[2020-07-12 13:15] LABS: BASOPHILS ABSOLUTE AUTO 0.04 K/mm3 (0.00-0.23); BASOPHILS PERCENT AUTO 1 % (0-2); EOSINOPHILS ABSOLUTE AUTO 0.11 K/mm3 (0.00-0.68); EOSINOPHILS PERCENT AUTO 1 % (0-6); Hematocrit 33.4 % (33.0-51.0); Hemoglobin 10.9 g/dL (11.5-16.0); IMMATURE GRAN ABSOLUTE AUTO 0.06 K/mm3 (0.00-0.10); IMMATURE GRAN PERCENT AUTO 1 % (0-1); LYMPHOCYTES ABSOLUTE AUTO 0.35 K/mm3 (0.84-5.20); LYMPHOCYTES PERCENT AUTO 4 % (21-46); MONOCYTES ABSOLUTE AUTO 0.88 K/mm3 (0.16-1.47); MONOCYTES PERCENT AUTO 11 % (4-13); Mean Corpuscular HGB 31.1 pg (26.0-34.0); Mean Corpuscular HGB Conc 32.6 g/dL (31.5-36.5); Mean Corpuscular Volume 95 fL (80-100); Mean Platelet Volume 8.8 fL (9.1-12.4); NEUTROPHILS ABSOLUTE AUTO 6.88 K/mm3 (1.96-9.15); NEUTROPHILS PERCENT AUTO 83 % (41-73); Platelet Count 532 K/mm3 (150-400); RDW Standard Deviation 44.7 fL (35.1-46.3); White Blood Cell Count 8.32 K/mm3 (4.00-11.30)
[2020-07-12 13:36] LABS: Alanine Aminotransfer (ALT/SGP 21 U/L (12-78); Albumin, Blood 2.4 g/dL (3.4-5.0); Albumin/Globulin Ratio 0.5 (0.8-1.8); Alk Phos 96 U/L (50-136); Anion Gap 11 mmol/L (6-16); Aspartate Aminotrans (AST/SGOT 24 U/L (12-37); Bilirubin, Total 0.4 mg/dL (0.1-1.0); Blood Urea Nitrogen 7 mg/dL (8-24); Bun/Creatinine Ratio 10.5 (12.0-20.0); CO2, Blood 27 mmol/L (21-32); Calcium, Blood 9.1 mg/dL (8.5-10.1); Chloride, Blood 93 mmol/L (98-108); Creatinine, Blood 0.67 mg/dL (0.40-1.00); Globulin, Blood 4.7 g/dL (2.2-4.0); Glomerular Filtration Rate >60 (60-); Glucose, Blood 84 mg/dL (70-99); Potassium, Blood 3.1 mmol/L (3.5-5.5); Sodium, Blood 131 mmol/L (136-145); Total Protein, Blood 7.1 g/dL (6.4-8.2); Troponin I <0.015 ng/mL (0.000-0.040)
[2020-07-12 13:49] LABS: BASOPHILS ABSOLUTE MAN 0.16 K/mm3 (0.00-0.23); BASOPHILS PERCENT MAN 2 % (0-2); EOSINOPHILS ABSOLUTE MAN 0.08 K/mm3 (0.00-0.68); EOSINOPHILS PERCENT MAN 1 % (0-6); LYMPHOCYTES ABSOLUTE MAN 0.58 K/mm3 (0.84-5.20); LYMPHOCYTES PERCENT MAN 7 % (21-46); MONOCYTES ABSOLUTE MAN 0.49 K/mm3 (0.16-1.47); MONOCYTES PERCENT MAN 6 % (4-13); NEUTROPHILS ABSOLUTE MAN 6.98 K/mm3 (1.96-9.15); SEG NEUTROPHILS PERCENT MAN 84 % (41-73); TOTAL CELLS COUNTED 100
[2020-07-12] MEDS ORDERED: Reglan10 MG PO (15:49)
== END 2020-07-12 16:15 | disposition home or self-care (01) ==
LOC: ER 12:01
PROVIDERS: Physician Assistant
DX: C34.90 Malignant neoplasm of unspecified part of unspecified bronchus or lung (principal); R11.0 Nausea; I10 Essential (primary) hypertension; Z86.73 Personal history of transient ischemic attack (TIA), and cerebral infarction without residual deficits; Z92.21 Personal history of antineoplastic chemotherapy; Z92.3 Personal history of irradiation; Z88.2 Allergy status to sulfonamides; Z88.6 Allergy status to analgesic agent; Z88.3 Allergy status to other anti-infective agents; Z79.899 Other long term (current) drug therapy
CPT/HCPCS: 36415; 71046; 80053; 84484; 85025; 93005; 93010; 96374; 99285-25; A9270; J2765

== ENCOUNTER 2020-07-14 13:34 | Emergency (ER) | payer MEDICARE ==
[~2020-07-14] VITALS: Ht 157.5 cm; Wt 60.8 kg
[~2020-07-14 13:34] MED LIST changes: +Reglan10 MG PO
[2020-07-14 14:03] LABS: BASOPHILS ABSOLUTE AUTO 0.07 K/mm3 (0.00-0.23); BASOPHILS PERCENT AUTO 1 % (0-2); EOSINOPHILS ABSOLUTE AUTO 0.39 K/mm3 (0.00-0.68); EOSINOPHILS PERCENT AUTO 4 % (0-6); Hematocrit 35.6 % (33.0-51.0); Hemoglobin 11.8 g/dL (11.5-16.0); IMMATURE GRAN ABSOLUTE AUTO 0.11 K/mm3 (0.00-0.10); IMMATURE GRAN PERCENT AUTO 1 % (0-1); LYMPHOCYTES ABSOLUTE AUTO 0.46 K/mm3 (0.84-5.20); LYMPHOCYTES PERCENT AUTO 5 % (21-46); MONOCYTES ABSOLUTE AUTO 1.06 K/mm3 (0.16-1.47); MONOCYTES PERCENT AUTO 11 % (4-13); Mean Corpuscular HGB 31.3 pg (26.0-34.0); Mean Corpuscular HGB Conc 33.1 g/dL (31.5-36.5); Mean Corpuscular Volume 94 fL (80-100); NEUTROPHILS ABSOLUTE AUTO 7.59 K/mm3 (1.96-9.15); NEUTROPHILS PERCENT AUTO 78 % (41-73); Platelet Count 637 K/mm3 (150-400); RDW Coefficient Variation 12.8 % (11.7-14.2); Red Blood Cell Count 3.77 M/mm3 (3.80-5.20); White Blood Cell Count 9.68 K/mm3 (4.00-11.30)
[2020-07-14 14:19] LABS: Alanine Aminotransfer (ALT/SGP 20 U/L (12-78); Albumin, Blood 2.4 g/dL (3.4-5.0); Albumin/Globulin Ratio 0.5 (0.8-1.8); Alk Phos 94 U/L (50-136); Anion Gap 10 mmol/L (6-16); Aspartate Aminotrans (AST/SGOT 25 U/L (12-37); Bilirubin, Total 0.4 mg/dL (0.1-1.0); Blood Urea Nitrogen 7 mg/dL (8-24); Bun/Creatinine Ratio 11.2 (12.0-20.0); CO2, Blood 27 mmol/L (21-32); Calcium, Blood 9.2 mg/dL (8.5-10.1); Chloride, Blood 92 mmol/L (98-108); Creatinine, Blood 0.63 mg/dL (0.40-1.00); Globulin, Blood 5.1 g/dL (2.2-4.0); Glomerular Filtration Rate >60 (60-); Glucose, Blood 80 mg/dL (70-99); Potassium, Blood 3.6 mmol/L (3.5-5.5); Sodium, Blood 129 mmol/L (136-145); Total Protein, Blood 7.5 g/dL (6.4-8.2)
[2020-07-14 14:30] LABS: BAND PERCENT MAN 1 % (0-8); BASOPHILS PERCENT MAN 0 % (0-2); EOSINOPHILS ABSOLUTE MAN 0.96 K/mm3 (0.00-0.68); EOSINOPHILS PERCENT MAN 10 % (0-6); LYMPHOCYTES ABSOLUTE MAN 0.48 K/mm3 (0.84-5.20); LYMPHOCYTES PERCENT MAN 5 % (21-46); MONOCYTES ABSOLUTE MAN 0.48 K/mm3 (0.16-1.47); MONOCYTES PERCENT MAN 5 % (4-13); NEUTROPHILS ABSOLUTE MAN 7.74 K/mm3 (1.96-9.15); SEG NEUTROPHILS PERCENT MAN 79 % (41-73); TOTAL CELLS COUNTED 100
[2020-07-14 17:45] LABS: Source, Urine Clean Catch
[2020-07-14 18:02] LABS: Appearance, Urine Clear (Clear); Bilirubin, Urine Neg (Neg); Blood, Urine 1+ (Neg); Color, Urine Yellow (P-Yellow); Glucose Qualitative, Urine Neg (Neg); Ketones, Urine 3+ (Neg); Leukocyte Esterase, Urine 1+ (Neg); Nitrite, Urine Neg (Neg); Protein, Urine Neg (Neg); Urobilinogen, Urine NORM (Normal)
[2020-07-14 18:11] LABS: Bacteria Few /hpf; Mucus Light (0-Heavy); Squamous Epithelial Cells Mod /hpf (Few); Transitional Epithelial Cells Rare /hpf (0-Rare)
[2020-07-14] MEDS ORDERED: PROC5 PO (18:19)
== END 2020-07-14 18:30 | disposition home or self-care (01) ==
LOC: ER 13:34
PROVIDERS: Physician Assistant
DX: R11.2 Nausea with vomiting, unspecified (principal); C34.90 Malignant neoplasm of unspecified part of unspecified bronchus or lung; I10 Essential (primary) hypertension; Z92.25 Personal history of immunosuppression therapy; Z92.3 Personal history of irradiation; Z88.2 Allergy status to sulfonamides; Z88.6 Allergy status to analgesic agent; Z88.1 Allergy status to other antibiotic agents; Z87.891 Personal history of nicotine dependence
CPT/HCPCS: 36415; 71046; 80053; 81001; 83690; 85025; 93005; 93010; 96374; 99285-25; J0780; J7030

== ENCOUNTER 2020-08-02 13:36 | Emergency (ER) | payer MEDICARE ==
[~2020-08-02] VITALS: Ht 157.5 cm; Wt 58.5 kg
[~2020-08-02 13:36] MED LIST changes: +PROC5 PO
[2020-08-02 14:20] LABS: BASOPHILS ABSOLUTE AUTO 0.05 K/mm3 (0.00-0.23); BASOPHILS PERCENT AUTO 1 % (0-2); EOSINOPHILS ABSOLUTE AUTO 0.29 K/mm3 (0.00-0.68); EOSINOPHILS PERCENT AUTO 3 % (0-6); Hematocrit 33.3 % (33.0-51.0); Hemoglobin 10.8 g/dL (11.5-16.0); IMMATURE GRAN ABSOLUTE AUTO 0.05 K/mm3 (0.00-0.10); IMMATURE GRAN PERCENT AUTO 1 % (0-1); LYMPHOCYTES PERCENT AUTO 4 % (21-46); MONOCYTES ABSOLUTE AUTO 0.66 K/mm3 (0.16-1.47); MONOCYTES PERCENT AUTO 8 % (4-13); Mean Corpuscular HGB 30.3 pg (26.0-34.0); Mean Corpuscular HGB Conc 32.4 g/dL (31.5-36.5); Mean Corpuscular Volume 93 fL (80-100); Mean Platelet Volume 9.2 fL (9.1-12.4); NEUTROPHILS ABSOLUTE AUTO 7.29 K/mm3 (1.96-9.15); NEUTROPHILS PERCENT AUTO 84 % (41-73); Platelet Count 498 K/mm3 (150-400); RDW Coefficient Variation 13.7 % (11.7-14.2); RDW Standard Deviation 46.4 fL (35.1-46.3); Red Blood Cell Count 3.57 M/mm3 (3.80-5.20); White Blood Cell Count 8.64 K/mm3 (4.00-11.30)
[2020-08-02 14:53] LABS: Alanine Aminotransfer (ALT/SGP 14 U/L (12-78); Albumin, Blood 2.2 g/dL (3.4-5.0); Albumin/Globulin Ratio 0.4 (0.8-1.8); Alk Phos 127 U/L (50-136); Anion Gap 9 mmol/L (6-16); Aspartate Aminotrans (AST/SGOT 14 U/L (12-37); Bilirubin, Total 0.4 mg/dL (0.1-1.0); Blood Urea Nitrogen 9 mg/dL (8-24); Bun/Creatinine Ratio 13.2 (12.0-20.0); CO2, Blood 26 mmol/L (21-32); Calcium, Blood 9.2 mg/dL (8.5-10.1); Chloride, Blood 97 mmol/L (98-108); Creatinine, Blood 0.68 mg/dL (0.40-1.00); Globulin, Blood 5.5 g/dL (2.2-4.0); Glomerular Filtration Rate >60 (60-); Glucose, Blood 107 mg/dL (70-99); Potassium, Blood 3.7 mmol/L (3.5-5.5); Sodium, Blood 132 mmol/L (136-145); Total Protein, Blood 7.7 g/dL (6.4-8.2)
[2020-08-02 15:52] LABS: Source, Urine Clean Catch
[2020-08-02 16:08] LABS: Appearance, Urine Clear (Clear); Bilirubin, Urine Neg (Neg); Blood, Urine Neg (Neg); Color, Urine Yellow (P-Yellow); Glucose Qualitative, Urine Neg (Neg); Ketones, Urine 3+ (Neg); Leukocyte Esterase, Urine 2+ (Neg); Nitrite, Urine Neg (Neg); Protein, Urine Neg (Neg); Urobilinogen, Urine NORM (Normal)
[2020-08-02 16:18] LABS: Bacteria Mod /hpf; Granular Casts Rare /lpf (0); Red Blood Cells, Urine Not Seen /hpf (0-2); Squamous Epithelial Cells Mod /hpf (Few)
[2020-08-02] MEDS ORDERED: PROM12.5S PR (17:01)
[2020-08-03] MEDS ORDERED: FOLI1 PO (16:18)
== END 2020-08-02 17:15 | disposition home or self-care (01) ==
LOC: ER 13:36
PROVIDERS: Emergency Medicine; Physician Assistant
DX: R11.2 Nausea with vomiting, unspecified (principal); Z88.2 Allergy status to sulfonamides; Z88.8 Allergy status to other drugs, medicaments and biological substances; Z79.899 Other long term (current) drug therapy; Z87.891 Personal history of nicotine dependence
CPT/HCPCS: 36415; 74176; 80053; 81001; 83690; 85025; 87086; 93005; 93010; 96361; 96374; 99285-25; J0780; J2405; J7030

== ENCOUNTER 2020-08-03 15:41 | Emergency (ER) | payer MEDICARE ==
[~2020-08-03] VITALS: Ht 162.6 cm; Wt 155.0 kg
[2020-08-03 16:12] LABS: BASOPHILS ABSOLUTE AUTO 0.05 K/mm3 (0.00-0.23); BASOPHILS PERCENT AUTO 1 % (0-2); EOSINOPHILS ABSOLUTE AUTO 0.68 K/mm3 (0.00-0.68); EOSINOPHILS PERCENT AUTO 10 % (0-6); Hematocrit 27.1 % (33.0-51.0); Hemoglobin 8.8 g/dL (11.5-16.0); IMMATURE GRAN ABSOLUTE AUTO 0.03 K/mm3 (0.00-0.10); IMMATURE GRAN PERCENT AUTO 1 % (0-1); LYMPHOCYTES ABSOLUTE AUTO 0.44 K/mm3 (0.84-5.20); LYMPHOCYTES PERCENT AUTO 7 % (21-46); MONOCYTES ABSOLUTE AUTO 0.59 K/mm3 (0.16-1.47); MONOCYTES PERCENT AUTO 9 % (4-13); Mean Corpuscular HGB 29.7 pg (26.0-34.0); Mean Corpuscular HGB Conc 32.5 g/dL (31.5-36.5); Mean Corpuscular Volume 92 fL (80-100); Mean Platelet Volume 9.2 fL (9.1-12.4); NEUTROPHILS ABSOLUTE AUTO 4.81 K/mm3 (1.96-9.15); NEUTROPHILS PERCENT AUTO 73 % (41-73); Platelet Count 386 K/mm3 (150-400); RDW Coefficient Variation 13.8 % (11.7-14.2); RDW Standard Deviation 46.3 fL (35.1-46.3); Red Blood Cell Count 2.96 M/mm3 (3.80-5.20)
[2020-08-03] MEDS ORDERED: FOLI1 PO (16:18)
[2020-08-03 16:35] LABS: Alanine Aminotransfer (ALT/SGP 11 U/L (12-78); Albumin, Blood 1.7 g/dL (3.4-5.0); Albumin/Globulin Ratio 0.4 (0.8-1.8); Alk Phos 98 U/L (50-136); Anion Gap 10 mmol/L (6-16); Aspartate Aminotrans (AST/SGOT 16 U/L (12-37); Bilirubin, Total 0.4 mg/dL (0.1-1.0); Blood Urea Nitrogen 7 mg/dL (8-24); Bun/Creatinine Ratio 11.5 (12.0-20.0); CO2, Blood 24 mmol/L (21-32); Calcium, Blood 8.7 mg/dL (8.5-10.1); Chloride, Blood 102 mmol/L (98-108); Creatinine, Blood 0.61 mg/dL (0.40-1.00); Globulin, Blood 4.5 g/dL (2.2-4.0); Glomerular Filtration Rate >60 (60-); Glucose, Blood 70 mg/dL (70-99); Magnesium, Blood 1.5 mg/dL (1.6-2.4); Phosphorus, Blood 2.5 mg/dL (2.5-4.9); Potassium, Blood 3.1 mmol/L (3.5-5.5); Sodium, Blood 136 mmol/L (136-145); Total Protein, Blood 6.2 g/dL (6.4-8.2)
== END 2020-08-03 19:13 | disposition home or self-care (01) ==
LOC: ER 15:41
PROVIDERS: Physician Assistant
DX: R11.0 Nausea (principal); I10 Essential (primary) hypertension; Z88.2 Allergy status to sulfonamides; Z88.6 Allergy status to analgesic agent; Z88.1 Allergy status to other antibiotic agents; Z79.01 Long term (current) use of anticoagulants; Z86.73 Personal history of transient ischemic attack (TIA), and cerebral infarction without residual deficits; Z87.891 Personal history of nicotine dependence
CPT/HCPCS: 36415; 80053; 83690; 83735; 84100; 84484; 85025; 93005; 93010; 96365; 96366; 96375; 99285-25; J1200; J2765; J3480; J7030

== ENCOUNTER 2020-08-04 20:00 | Emergency (ER) | payer MEDICARE ==
[~2020-08-04] VITALS: Ht 157.5 cm; Wt 56.7 kg
[2020-08-04 21:27] LABS: BASOPHILS ABSOLUTE AUTO 0.06 K/mm3 (0.00-0.23); BASOPHILS PERCENT AUTO 1 % (0-2); EOSINOPHILS ABSOLUTE AUTO 0.79 K/mm3 (0.00-0.68); EOSINOPHILS PERCENT AUTO 11 % (0-6); Hematocrit 32.1 % (33.0-51.0); Hemoglobin 10.2 g/dL (11.5-16.0); IMMATURE GRAN ABSOLUTE AUTO 0.04 K/mm3 (0.00-0.10); IMMATURE GRAN PERCENT AUTO 1 % (0-1); LYMPHOCYTES ABSOLUTE AUTO 0.48 K/mm3 (0.84-5.20); LYMPHOCYTES PERCENT AUTO 7 % (21-46); MONOCYTES ABSOLUTE AUTO 0.77 K/mm3 (0.16-1.47); MONOCYTES PERCENT AUTO 11 % (4-13); Mean Corpuscular HGB 29.2 pg (26.0-34.0); Mean Corpuscular HGB Conc 31.8 g/dL (31.5-36.5); Mean Corpuscular Volume 92 fL (80-100); Mean Platelet Volume 9.5 fL (9.1-12.4); NEUTROPHILS ABSOLUTE AUTO 5.07 K/mm3 (1.96-9.15); NEUTROPHILS PERCENT AUTO 70 % (41-73); Platelet Count 440 K/mm3 (150-400); RDW Standard Deviation 46.9 fL (35.1-46.3); Red Blood Cell Count 3.49 M/mm3 (3.80-5.20); White Blood Cell Count 7.21 K/mm3 (4.00-11.30)
[2020-08-04 21:44] LABS: Alanine Aminotransfer (ALT/SGP 17 U/L (12-78); Albumin, Blood 1.9 g/dL (3.4-5.0); Albumin/Globulin Ratio 0.4 (0.8-1.8); Alk Phos 105 U/L (50-136); Anion Gap 11 mmol/L (6-16); Aspartate Aminotrans (AST/SGOT 18 U/L (12-37); Bilirubin, Total 0.5 mg/dL (0.1-1.0); Blood Urea Nitrogen 6 mg/dL (8-24); Bun/Creatinine Ratio 9.2 (12.0-20.0); CO2, Blood 25 mmol/L (21-32); Calcium, Blood 9.2 mg/dL (8.5-10.1); Chloride, Blood 99 mmol/L (98-108); Creatinine, Blood 0.65 mg/dL (0.40-1.00); Glomerular Filtration Rate >60 (60-); Glucose, Blood 70 mg/dL (70-99); Magnesium, Blood 1.5 mg/dL (1.6-2.4); Potassium, Blood 3.1 mmol/L (3.5-5.5); Sodium, Blood 135 mmol/L (136-145); Total Protein, Blood 6.9 g/dL (6.4-8.2)
[2020-08-04 21:51] LABS: Troponin I <0.015 ng/mL (0.000-0.040)
[2020-08-05] MEDS ORDERED: PROM25 PO (00:14)
== END 2020-08-05 01:17 | disposition home or self-care (01) ==
LOC: ER 20:00
PROVIDERS: Emergency Medicine
DX: R11.0 Nausea (principal); I10 Essential (primary) hypertension; Z87.891 Personal history of nicotine dependence; Z86.73 Personal history of transient ischemic attack (TIA), and cerebral infarction without residual deficits; Z88.6 Allergy status to analgesic agent; Z88.2 Allergy status to sulfonamides; Z88.8 Allergy status to other drugs, medicaments and biological substances
CPT/HCPCS: 36415; 80053; 83690; 83735; 84484; 85025; 93005; 93010; 96374; 99284-25; A9270; J2550; J7120

== ENCOUNTER 2020-08-06 06:17 | Day surgery (SDC) | payer MEDICARE ==
[~2020-08-06] VITALS: Ht 157.5 cm; Wt 58.9 kg
--- NOTE | 2020-08-06 09:50 | NUR ---
PT DOING WELL, ALL DC INSTRUCTIONS GONE OVER, ALL QUESTIONS ANSWERED. HOME VIA WC OUT TO WHO IS DRIVING.
== END 2020-08-06 09:50 | disposition home or self-care (01) ==
LOC: ORSCMMR 06:17 → ORD 10:00 → ORSCMMR 10:00
PROVIDERS: Surgery
PROC: B5141ZA Fluoroscopy of Left Jugular Veins using Low Osmolar Contrast, Guidance (ICD-10-PCS; principal; 2020-08-06 07:30)
PROC: 05HN33Z Insertion of Infusion Device into Left Internal Jugular Vein, Percutaneous Approach (ICD-10-PCS; principal; 2020-08-06 07:30)
DX: C34.90 Malignant neoplasm of unspecified part of unspecified bronchus or lung (principal); I10 Essential (primary) hypertension; Z79.899 Other long term (current) drug therapy; Z79.01 Long term (current) use of anticoagulants
CPT/HCPCS: 77001; A9270; C1788; J0690; J1642; J2250; J2704; J3010; J7120

== ENCOUNTER 2020-08-22 18:39 | Inpatient (IN) | payer MEDICARE ==
[~2020-08-22] VITALS: Ht 175.3 cm; Wt 55.0 kg
[2020-08-22] MEDS ORDERED: FOLI1 PO (19:44)
[2020-08-22 20:12] LABS: Hematocrit 26.8 % (33.0-51.0); Hemoglobin 8.7 g/dL (11.5-16.0); Mean Corpuscular HGB 28.8 pg (26.0-34.0); Mean Corpuscular HGB Conc 32.5 g/dL (31.5-36.5); Mean Corpuscular Volume 89 fL (80-100); Mean Platelet Volume 10.7 fL (9.1-12.4); NRBC Auto 0.5 /100 WBC (0.0-0.2); Platelet Count 137 K/mm3 (150-400); RDW Standard Deviation 44.2 fL (35.1-46.3); Red Blood Cell Count 3.02 M/mm3 (3.80-5.20); White Blood Cell Count 21.49 K/mm3 (4.00-11.30)
[2020-08-22 20:32] LABS: BAND PERCENT MAN 20 % (0-8); BASOPHILS PERCENT MAN 0 % (0-2); EOSINOPHILS PERCENT MAN 0 % (0-6); LYMPHOCYTES ABSOLUTE MAN 1.28 K/mm3 (0.84-5.20); LYMPHOCYTES PERCENT MAN 6 % (21-46); METAMYELOCYTE ABSOLUTE MAN 0.21 K/mm3 (0.00-0.00); METAMYELOCYTE PERCENT MAN 1 % (0-0); MONOCYTES ABSOLUTE MAN 2.36 K/mm3 (0.16-1.47); MONOCYTES PERCENT MAN 11 % (4-13); MYELOCYTE ABSOLUTE MAN 0.42 K/mm3 (0.00-0.00); MYELOCYTE PERCENT MAN 2 % (0-0); NEUTROPHILS ABSOLUTE MAN 17.19 K/mm3 (1.96-9.15); SEG NEUTROPHILS PERCENT MAN 60 % (41-73); TOTAL CELLS COUNTED 100
[2020-08-22 21:01] LABS: Alanine Aminotransfer (ALT/SGP 24 U/L (12-78); Albumin, Blood 2.6 g/dL (3.4-5.0); Albumin/Globulin Ratio 0.6 (0.8-1.8); Alk Phos 124 U/L (50-136); Anion Gap 10 mmol/L (6-16); Aspartate Aminotrans (AST/SGOT 23 U/L (12-37); Bilirubin, Total 0.4 mg/dL (0.1-1.0); Blood Urea Nitrogen 9 mg/dL (8-24); Bun/Creatinine Ratio 13.9 (12.0-20.0); CO2, Blood 25 mmol/L (21-32); Calcium, Blood 9.1 mg/dL (8.5-10.1); Chloride, Blood 98 mmol/L (98-108); Creatinine, Blood 0.65 mg/dL (0.40-1.00); Globulin, Blood 4.3 g/dL (2.2-4.0); Glomerular Filtration Rate >60 (60-); Glucose, Blood 74 mg/dL (70-99); Magnesium, Blood 1.6 mg/dL (1.6-2.4); Potassium, Blood 3.7 mmol/L (3.5-5.5); Sodium, Blood 133 mmol/L (136-145); Total Protein, Blood 6.9 g/dL (6.4-8.2)
[2020-08-22 21:26] LABS: Source, Urine Catheter
[2020-08-22 21:34] LABS: Appearance, Urine Clear (Clear); Bilirubin, Urine Neg (Neg); Blood, Urine Neg (Neg); Color, Urine Yellow (P-Yellow); Glucose Qualitative, Urine Neg (Neg); Ketones, Urine Neg (Neg); Leukocyte Esterase, Urine Neg (Neg); Nitrite, Urine Neg (Neg); Protein, Urine Neg (Neg); Urobilinogen, Urine NORM (Normal)
[2020-08-22 21:41] LABS: U Amphetamine Screen Not Detected; U Barbituate Screen Not Detected; U Benzodiazapine Screen Not Detected; U Buprenorphine Screen Not Detected; U Cannabinoids Screen Not Detected; U Cocaine Screen Not Detected; U Methadone Screen Not Detected; U Methamphetamine Screen Not Detected; U Opiates Screen Not Detected; U Oxycodone Screen Not Detected; U Phencyclidine Screen Not Detected; U Propoxyphene Screen Not Detected
[2020-08-22 22:53] LABS: Glucose, CSF 39 mg/dL (40-70)
[2020-08-22 22:54] LABS: Appearance, CSF Clear (Clear); Color, CSF No Color (No Color)
[2020-08-22 22:55] LABS: RBC Count, CSF 37 /mm3 (0-0); WBC Count, CSF 1 /mm3 (0-5)
[2020-08-22 23:00] LABS: Appearance, CSF Clear (Clear); Color, CSF No Color (No Color); RBC Count, CSF 0 /mm3 (0-0); WBC Count, CSF 0 /mm3 (0-5)
[2020-08-22 23:57] LABS: Cryptococcus Neoformans/Gattii Not Detected (NOT DETECT); Enterovirus Not Detected (NOT DETECT); Escherichia Coli K1 Not Detected (NOT DETECT); Haemophilus Influenza Not Detected (NOT DETECT); Herpes Simplex Virus 1 Not Detected (NOT DETECT); Herpes Simplex Virus 2 Not Detected (NOT DETECT); Human Herpesvirus 6 Not Detected (NOT DETECT); Human Parechovirus Not Detected (NOT DETECT); Listeria Monocytogenes Not Detected (NOT DETECT); Neisseria Meningitidis Not Detected (NOT DETECT); Streptococcus Agalactiae Not Detected (NOT DETECT); Streptococcus Pneumoniae Not Detected (NOT DETECT); Varicella Zoster Virus Not Detected (NOT DETECT)
[2020-08-23 03:41] LABS: Hematocrit 22.3 % (33.0-51.0); Hemoglobin 7.1 g/dL (11.5-16.0); Mean Corpuscular HGB 28.6 pg (26.0-34.0); Mean Corpuscular HGB Conc 31.8 g/dL (31.5-36.5); Mean Corpuscular Volume 90 fL (80-100); Mean Platelet Volume 10.8 fL (9.1-12.4); NRBC ABSOLUTE 0.05 K/mm3 (0.00-0.02); NRBC Auto 0.3 /100 WBC (0.0-0.2); Platelet Count 110 K/mm3 (150-400); RDW Coefficient Variation 14.4 % (11.7-14.2); RDW Standard Deviation 46.1 fL (35.1-46.3); Red Blood Cell Count 2.48 M/mm3 (3.80-5.20); White Blood Cell Count 18.14 K/mm3 (4.00-11.30)
[2020-08-23 03:58] LABS: Anion Gap 7 mmol/L (6-16); Blood Urea Nitrogen 7 mg/dL (8-24); Bun/Creatinine Ratio 11.8 (12.0-20.0); CO2, Blood 27 mmol/L (21-32); Calcium, Blood 8.2 mg/dL (8.5-10.1); Chloride, Blood 100 mmol/L (98-108); Glomerular Filtration Rate >60 (60-); Glucose, Blood 82 mg/dL (70-99); Potassium, Blood 3.9 mmol/L (3.5-5.5); Sodium, Blood 134 mmol/L (136-145)
[2020-08-23 04:16] LABS: BAND PERCENT MAN 7 % (0-8); BASOPHILS PERCENT MAN 0 % (0-2); EOSINOPHILS PERCENT MAN 0 % (0-6); LYMPHOCYTES ABSOLUTE MAN 2.72 K/mm3 (0.84-5.20); LYMPHOCYTES PERCENT MAN 15 % (21-46); METAMYELOCYTE ABSOLUTE MAN 0.18 K/mm3 (0.00-0.00); METAMYELOCYTE PERCENT MAN 1 % (0-0); MONOCYTES ABSOLUTE MAN 1.26 K/mm3 (0.16-1.47); MONOCYTES PERCENT MAN 7 % (4-13); MYELOCYTE ABSOLUTE MAN 0.18 K/mm3 (0.00-0.00); MYELOCYTE PERCENT MAN 1 % (0-0); NEUTROPHILS ABSOLUTE MAN 13.78 K/mm3 (1.96-9.15); SEG NEUTROPHILS PERCENT MAN 69 % (41-73); TOTAL CELLS COUNTED 100
--- NOTE | 2020-08-23 17:27 | NUR ---
SHIFT NOTE PT ARRIVED FROM ER WITH C/O AMS. PT WITH HX OF LYMPHOMA AND LUNG CA, PT CURRENTLY RECIEVING CHEMO FOR LUNG CA. PT HAS PLEUREX DRAIN R/T LUNG CA. PLEUREX DRAIN WAS ACCESSED BY KACIE CUMMINS WITHOUT ANY OUTPUT. PT HAS ORDER FOR 1 UNIT OF PRBC WHICH WE ARE CURRENTLY WAITING FOR FROM BLOOD BANK AT THE TIME OF THIS NOTE. PT IS ALERT, ANSWERS MOST QUESTIONS CORRECTLY, SPOUSE ANSWERS FOR PT WHEN ASKED MOST QUESTIONS, SPOUSE HAS A GOOD CONCEPT OF PT'S MEDICAL HX. PT BEGINS SCREAMING WHEN SHE FEELS THE URGE TO UNRINATE, PT WITH BLADDER SPASMS WHEN URGE TO URINATE OCCURS. PT IS A/O X3. VSS.
--- NOTE | 2020-08-23 17:46 | NUR ---
UPDATE: Unit PRBC verified and started. VSS. Pt educated on possible blood reactions. Will monitor during transfusion. Call light in reach.
--- NOTE | 2020-08-23 19:02 | NUR ---
review of pleurex with and pt needs after they are settled will review plan of cre prognosis and polst.
[2020-08-24 04:03] LABS: BASOPHILS ABSOLUTE AUTO 0.07 K/mm3 (0.00-0.23); BASOPHILS PERCENT AUTO 1 % (0-2); Hematocrit 23.9 % (33.0-51.0); Hemoglobin 7.9 g/dL (11.5-16.0); LYMPHOCYTES ABSOLUTE AUTO 0.55 K/mm3 (0.84-5.20); LYMPHOCYTES PERCENT AUTO 7 % (21-46); MONOCYTES ABSOLUTE AUTO 0.92 K/mm3 (0.16-1.47); MONOCYTES PERCENT AUTO 12 % (4-13); Mean Corpuscular HGB 28.9 pg (26.0-34.0); Mean Corpuscular HGB Conc 33.1 g/dL (31.5-36.5); Mean Corpuscular Volume 88 fL (80-100); Mean Platelet Volume 10.2 fL (9.1-12.4); NRBC ABSOLUTE 0.02 K/mm3 (0.00-0.02); NRBC Auto 0.3 /100 WBC (0.0-0.2); Platelet Count 113 K/mm3 (150-400); RDW Coefficient Variation 14.3 % (11.7-14.2); RDW Standard Deviation 44.4 fL (35.1-46.3); Red Blood Cell Count 2.73 M/mm3 (3.80-5.20); White Blood Cell Count 7.52 K/mm3 (4.00-11.30)
[2020-08-24 04:13] LABS: EOSINOPHILS ABSOLUTE AUTO 0.04 K/mm3 (0.00-0.68); EOSINOPHILS PERCENT AUTO 1 % (0-6); IMMATURE GRAN ABSOLUTE AUTO 0.77 K/mm3 (0.00-0.10); IMMATURE GRAN PERCENT AUTO 10 % (0-1); NEUTROPHILS ABSOLUTE AUTO 5.17 K/mm3 (1.96-9.15); NEUTROPHILS PERCENT AUTO 69 % (41-73)
[2020-08-24 04:26] LABS: Alanine Aminotransfer (ALT/SGP 14 U/L (12-78); Albumin, Blood 1.8 g/dL (3.4-5.0); Albumin/Globulin Ratio 0.5 (0.8-1.8); Alk Phos 91 U/L (50-136); Anion Gap 5 mmol/L (6-16); Aspartate Aminotrans (AST/SGOT 14 U/L (12-37); Bilirubin, Total 0.3 mg/dL (0.1-1.0); Blood Urea Nitrogen 6 mg/dL (8-24); Bun/Creatinine Ratio 9.3 (12.0-20.0); CO2, Blood 28 mmol/L (21-32); Calcium, Blood 7.7 mg/dL (8.5-10.1); Chloride, Blood 104 mmol/L (98-108); Creatinine, Blood 0.64 mg/dL (0.40-1.00); Globulin, Blood 3.3 g/dL (2.2-4.0); Glomerular Filtration Rate >60 (60-); Glucose, Blood 73 mg/dL (70-99); Potassium, Blood 3.1 mmol/L (3.5-5.5); Sodium, Blood 137 mmol/L (136-145); Total Protein, Blood 5.1 g/dL (6.4-8.2)
[2020-08-24 05:45] LABS: BAND PERCENT MAN 3 % (0-8); BASOPHILS PERCENT MAN 0 % (0-2); EOSINOPHILS ABSOLUTE MAN 0.07 K/mm3 (0.00-0.68); EOSINOPHILS PERCENT MAN 1 % (0-6); LYMPHOCYTES ABSOLUTE MAN 0.45 K/mm3 (0.84-5.20); LYMPHOCYTES PERCENT MAN 6 % (21-46); METAMYELOCYTE ABSOLUTE MAN 0.37 K/mm3 (0.00-0.00); METAMYELOCYTE PERCENT MAN 5 % (0-0); MONOCYTES ABSOLUTE MAN 0.75 K/mm3 (0.16-1.47); MONOCYTES PERCENT MAN 10 % (4-13); MYELOCYTE ABSOLUTE MAN 0.15 K/mm3 (0.00-0.00); MYELOCYTE PERCENT MAN 2 % (0-0); NEUTROPHILS ABSOLUTE MAN 5.71 K/mm3 (1.96-9.15); SEG NEUTROPHILS PERCENT MAN 73 % (41-73); TOTAL CELLS COUNTED 100
--- NOTE | 2020-08-24 06:17 | NUR ---
SUMMARY PT RECIEVED 1 UNIT PRBC'S, VSS, RESP UNLABORED. PT HAS SLEPT THROUGH THE NIGHT SHE WILL WAKE UP WITH STIMULATION & HAS BEEN ABLE TO ANSWER QUESTIONS APROPRIATLY. PT HAS USED THE BEDPAN X2. NO ACUTE CHANGES. CALL LIGHT IN REACH. WCTM & REPORT TO DAY RN.
--- NOTE | 2020-08-24 18:02 | NUR ---
SHIFT SUMMARY; ASSUMED CARE AT 0700, REPORT FROM MARIA G LOZANO. A/A/OX4 THROUGHOUT SHIFT. PLUREX DRAIN TO LEFT CHEST IN PLACE WITH DRESSING CLEAN DRY AND INTACT. AMBULATES WITH ASSISTANCE TO RESTROOM. REPOSITIONS SELF IN BED NEEDED. RA, L/S DIMINISHED T/O. FAMILY AT BEDSIDE IN AFTERNOON. NO ACUTE CHANGES DURING SHIFT. WILL CONTINUE TO MONITOR AND TREAT UNTIL CHANGE OF SHIFT.
--- NOTE | 2020-08-24 19:32 | NUR ---
CARDIZEM GTT TURNED OFF; HEART RATE IN LOW 80'S FOR 30 MINUTES
--- NOTE | 2020-08-24 20:40 | NUR ---
ASSUMED CARE OF PATIENT AT APPROXIMATELY 1910 FROM STEVIE Vega RN. PATIENT ALERT AND ORIENTED X4; FORGETFUL AT TIMES. PATIENT REPORTS PAIN IN HER THROAT FROM BEFORE ARRIVAL; MAYBE YELLING OR FIGHTING EMS PER PATIENT REPORT; MAGIC MOUTH WASH GIVEN WITH GOOD RESULTS. PATIENT DENIES PAIN OTHERWISE, NUMBENSS, TINGLING, DIZZINESS AND NAUSEA. SR/ST ON TELE; OXYGEN SATURATION ABOVE 90% ON ROOM AIR. PIV BAD UPON START OF SHIFT; TAMIKO Menard CALLED DR. SU AND WILL ACCESS MEDIPORT IN LEFT CHEST. PLEUREX TUBE IN PLACE. FORGETUL; BED ALARM IN PLACE.
--- NOTE | 2020-08-25 06:31 | NUR ---
[facility] WAS ACCESSED BY REPAIR MECHANIC DAN M. PATIENT SLEPT ABOUT SEVEN HOURS; VSS. NO ACUTE CHANGES.
--- NOTE | 2020-08-25 17:31 | NUR ---
SHIFT SUMMARY; ASSUMED CARE AT 0700, REPORT FROM [facility]. Bev/Bev/BRITTANEY DURING SHIFT. SBA TO BEDSIDE COMMODE, SPOUSE AT BEDSIDE IN AFTERNOON. ATTEMPTED DRAINING PLEUREX WITH HOME EUQIPMENT. NO OUTPUT. DR. BENDER UPDATED. NO ACUTE MEDICAL CHANGES DURING SHIFT. WILL CONTINUE TO TREAT AND MONITOR UNTIL CHANGE OF SHIFT.
--- NOTE | 2020-08-25 21:30 | NUR ---
ASSUMED CARE OF PATIENT AT APPROXIMATELY 1910 FROM STEVIE Vega RN. PATIENT ALERT AND ORIENTED X4; FORGETFUL AT TIMES. PATIENT REPORTS FEELING BETTER TODAY; SBA OUT OF BED. PATIENT REPORTS PAIN IN HER THROAT FROM BEFORE ARRIVAL; MAYBE YELLING OR FIGHTING EMS PER PATIENT REPORT; MAGIC MOUTH WASH GIVEN WITH GOOD RESULTS. PATIENT DENIES PAIN OTHERWISE, NUMBNESS, TINGLING, DIZZINESS AND NAUSEA. SR/ST ON TELE; OXYGEN SATURATION ABOVE 90% ON ROOM AIR. MEDIPORT TKO. PLEUREX TUBE IN PLACE. BED ALARM IN PLACE.
--- NOTE | 2020-08-25 23:01 | NUR ---
DR. BENDER CALLED TO REPORT PATIENT CAN BE MEDICAL NO TELE STATUS IF NOT IN AFIB. REPLACING POTASSIUM TONIGHT AND AM LABS ORDERED.
[2020-08-26 04:13] LABS: BASOPHILS ABSOLUTE AUTO 0.06 K/mm3 (0.00-0.23); BASOPHILS PERCENT AUTO 1 % (0-2); Hematocrit 23.3 % (33.0-51.0); Hemoglobin 7.6 g/dL (11.5-16.0); LYMPHOCYTES ABSOLUTE AUTO 0.48 K/mm3 (0.84-5.20); LYMPHOCYTES PERCENT AUTO 5 % (21-46); MONOCYTES ABSOLUTE AUTO 1.37 K/mm3 (0.16-1.47); MONOCYTES PERCENT AUTO 14 % (4-13); Mean Corpuscular HGB 28.9 pg (26.0-34.0); Mean Corpuscular HGB Conc 32.6 g/dL (31.5-36.5); Mean Corpuscular Volume 89 fL (80-100); Mean Platelet Volume 10.1 fL (9.1-12.4); Platelet Count 172 K/mm3 (150-400); RDW Coefficient Variation 14.7 % (11.7-14.2); RDW Standard Deviation 46.5 fL (35.1-46.3); Red Blood Cell Count 2.63 M/mm3 (3.80-5.20); White Blood Cell Count 9.97 K/mm3 (4.00-11.30)
[2020-08-26 04:22] LABS: EOSINOPHILS ABSOLUTE AUTO 0.04 K/mm3 (0.00-0.68); EOSINOPHILS PERCENT AUTO 0 % (0-6); IMMATURE GRAN ABSOLUTE AUTO 0.75 K/mm3 (0.00-0.10); IMMATURE GRAN PERCENT AUTO 8 % (0-1); NEUTROPHILS ABSOLUTE AUTO 7.27 K/mm3 (1.96-9.15); NEUTROPHILS PERCENT AUTO 73 % (41-73)
[2020-08-26 04:37] LABS: Alanine Aminotransfer (ALT/SGP 12 U/L (12-78); Albumin, Blood 1.6 g/dL (3.4-5.0); Albumin/Globulin Ratio 0.5 (0.8-1.8); Alk Phos 95 U/L (50-136); Anion Gap 5 mmol/L (6-16); Aspartate Aminotrans (AST/SGOT 8 U/L (12-37); Bilirubin, Total 0.1 mg/dL (0.1-1.0); Blood Urea Nitrogen 10 mg/dL (8-24); Bun/Creatinine Ratio 17.5 (12.0-20.0); CO2, Blood 26 mmol/L (21-32); Calcium, Blood 7.4 mg/dL (8.5-10.1); Chloride, Blood 107 mmol/L (98-108); Creatinine, Blood 0.57 mg/dL (0.40-1.00); Globulin, Blood 3.3 g/dL (2.2-4.0); Glomerular Filtration Rate >60 (60-); Glucose, Blood 89 mg/dL (70-99); Potassium, Blood 3.5 mmol/L (3.5-5.5); Sodium, Blood 138 mmol/L (136-145); Total Protein, Blood 4.9 g/dL (6.4-8.2)
[2020-08-26 05:29] LABS: BAND PERCENT MAN 22 % (0-8); BASOPHILS PERCENT MAN 0 % (0-2); BLASTS PERCENT MAN 1 % (0-0); EOSINOPHILS PERCENT MAN 0 % (0-6); LYMPHOCYTES ABSOLUTE MAN 0.09 K/mm3 (0.84-5.20); LYMPHOCYTES PERCENT MAN 1 % (21-46); METAMYELOCYTE ABSOLUTE MAN 0.19 K/mm3 (0.00-0.00); METAMYELOCYTE PERCENT MAN 2 % (0-0); MONOCYTES ABSOLUTE MAN 0.59 K/mm3 (0.16-1.47); MONOCYTES PERCENT MAN 6 % (4-13); MYELOCYTE ABSOLUTE MAN 0.09 K/mm3 (0.00-0.00); MYELOCYTE PERCENT MAN 1 % (0-0); NEUTROPHILS ABSOLUTE MAN 8.77 K/mm3 (1.96-9.15); PROMYELOCYTE ABSOLUTE MAN 0.09 K/mm3 (0.00-0.00); PROMYELOCYTE PERCENT MAN 1 % (0-0); SEG NEUTROPHILS PERCENT MAN 66 % (41-73); TOTAL CELLS COUNTED 101
--- NOTE | 2020-08-26 06:21 | NUR ---
PATIENT SLEPT ABOUT NINE HOURS LAST NIGHT. VSS. NO ACUTE CHANGES TO REPORT.
--- NOTE | 2020-08-26 08:00 | NUR ---
pt laying in bed awake a/ox3, pleasant and cooperative with care, follows commands well, denies pain, states she feels pretty good, lungs are dim t/o, resp even and unlabored, no cough noted, is on r/a, hrr, tele in place running sr per monitor, see strip, no edema noted, ppp+1, cap refill <3sec, vs stable, afebrile, iv is her mediport that is infusing tko, site is clear, btx4, abd flat soft nontender, voids via bsc, refused laxative this am states her bowel are doing ok, skin has some scattered bruising, maew, weak but able to ambulate, ariella, call light in reach.
[2020-08-26] MEDS ORDERED: CEFD300 PO (10:58)
--- NOTE | 2020-08-26 13:02 | NUR ---
pt has been discharged to home, went over discharge instructions with her she verbalized understanding, s.o. here to take her home, her mediport has been packed and removed, getting dressed. will call when ready to leave.
== END 2020-08-26 13:10 | disposition home or self-care (01) | DRG 871 ==
LOC: ER 18:39 → ERHOLD 23:38 → PCU 08-23 13:58
PROVIDERS: Emergency Medicine; Family Medicine; Internal Medicine; ADMIT Hospitalist
PROC: 30233N1 Transfusion of Nonautologous Red Blood Cells into Peripheral Vein, Percutaneous Approach (ICD-10-PCS; principal; 2020-08-22)
PROC: 02HV33Z Insertion of Infusion Device into Superior Vena Cava, Percutaneous Approach (ICD-10-PCS; 2020-08-22)
DX: A41.9 Sepsis, unspecified organism (principal); G93.41 Metabolic encephalopathy; J18.9 Pneumonia, unspecified organism; D61.810 Antineoplastic chemotherapy induced pancytopenia; C34.90 Malignant neoplasm of unspecified part of unspecified bronchus or lung; J91.0 Malignant pleural effusion; F32.9 Major depressive disorder, single episode, unspecified; E87.6 Hypokalemia; D63.0 Anemia in neoplastic disease; T45.1X5A Adverse effect of antineoplastic and immunosuppressive drugs, initial encounter; I10 Essential (primary) hypertension; Z90.710 Acquired absence of both cervix and uterus; Z86.711 Personal history of pulmonary embolism; Z86.73 Personal history of transient ischemic attack (TIA), and cerebral infarction without residual deficits; Z88.2 Allergy status to sulfonamides; Z88.6 Allergy status to analgesic agent; Z88.8 Allergy status to other drugs, medicaments and biological substances; Z79.01 Long term (current) use of anticoagulants; Z79.899 Other long term (current) drug therapy
CPT/HCPCS: 36415; 36430; 62270; 70450; 71045; 80048; 80053; 81003; 82945; 83605; 83735; 84157; 85025; 86850; 86900; 86901; 86923; 87040; 87070; 87205; 87483; 89051; 96365; 96372; 96372-59; 96375; 96375-59; 97161; 99285-25; A9270; G0480; J0696; J1642; J1650; J1956; J2060; J7030; J7040; J7050; J7120; P9016; P9612

== ENCOUNTER 2020-09-09 06:19 | Emergency (ER) | payer MEDICARE ==
[~2020-09-09] VITALS: Ht 157.5 cm; Wt 56.7 kg
[2020-09-09 06:59] LABS: BASOPHILS ABSOLUTE AUTO 0.01 K/mm3 (0.00-0.23); BASOPHILS PERCENT AUTO 0 % (0-2); EOSINOPHILS PERCENT AUTO 2 % (0-6); Hematocrit 26.8 % (33.0-51.0); Hemoglobin 8.8 g/dL (11.5-16.0); IMMATURE GRAN ABSOLUTE AUTO 0.03 K/mm3 (0.00-0.10); IMMATURE GRAN PERCENT AUTO 1 % (0-1); LYMPHOCYTES ABSOLUTE AUTO 0.26 K/mm3 (0.84-5.20); LYMPHOCYTES PERCENT AUTO 4 % (21-46); MONOCYTES ABSOLUTE AUTO 0.15 K/mm3 (0.16-1.47); MONOCYTES PERCENT AUTO 2 % (4-13); Mean Corpuscular HGB 29.6 pg (26.0-34.0); Mean Corpuscular HGB Conc 32.8 g/dL (31.5-36.5); Mean Corpuscular Volume 90 fL (80-100); Mean Platelet Volume 9.1 fL (9.1-12.4); NEUTROPHILS ABSOLUTE AUTO 5.89 K/mm3 (1.96-9.15); NEUTROPHILS PERCENT AUTO 91 % (41-73); Platelet Count 456 K/mm3 (150-400); RDW Standard Deviation 52.5 fL (35.1-46.3); Red Blood Cell Count 2.97 M/mm3 (3.80-5.20); White Blood Cell Count 6.44 K/mm3 (4.00-11.30)
[2020-09-09 07:16] LABS: Alanine Aminotransfer (ALT/SGP 15 U/L (12-78); Albumin, Blood 2.4 g/dL (3.4-5.0); Albumin/Globulin Ratio 0.6 (0.8-1.8); Alk Phos 99 U/L (50-136); Anion Gap 10 mmol/L (6-16); Aspartate Aminotrans (AST/SGOT 21 U/L (12-37); Bilirubin, Total 0.7 mg/dL (0.1-1.0); Blood Urea Nitrogen 8 mg/dL (8-24); Bun/Creatinine Ratio 14.6 (12.0-20.0); CO2, Blood 23 mmol/L (21-32); Calcium, Blood 8.5 mg/dL (8.5-10.1); Chloride, Blood 101 mmol/L (98-108); Creatinine, Blood 0.55 mg/dL (0.40-1.00); Globulin, Blood 4.2 g/dL (2.2-4.0); Glomerular Filtration Rate >60 (60-); Glucose, Blood 88 mg/dL (70-99); Magnesium, Blood 1.6 mg/dL (1.6-2.4); Potassium, Blood 2.9 mmol/L (3.5-5.5); Sodium, Blood 134 mmol/L (136-145); Total Protein, Blood 6.6 g/dL (6.4-8.2); Troponin I <0.015 ng/mL (0.000-0.040)
[2020-09-09 07:54] LABS: BASOPHILS PERCENT MAN 0 % (0-2); EOSINOPHILS ABSOLUTE MAN 0.12 K/mm3 (0.00-0.68); EOSINOPHILS PERCENT MAN 2 % (0-6); LYMPHOCYTES ABSOLUTE MAN 0.45 K/mm3 (0.84-5.20); LYMPHOCYTES PERCENT MAN 7 % (21-46); MONOCYTES PERCENT MAN 0 % (4-13); NEUTROPHILS ABSOLUTE MAN 5.86 K/mm3 (1.96-9.15); SEG NEUTROPHILS PERCENT MAN 91 % (41-73); TOTAL CELLS COUNTED 100
== END 2020-09-09 09:04 | disposition home or self-care (01) ==
LOC: ER 06:19
PROVIDERS: Emergency Medicine
DX: R11.2 Nausea with vomiting, unspecified (principal); I10 Essential (primary) hypertension; Z88.2 Allergy status to sulfonamides; Z88.8 Allergy status to other drugs, medicaments and biological substances; Z79.899 Other long term (current) drug therapy
CPT/HCPCS: 80053; 83690; 83735; 84484; 85025; 93005; 93010; 96361; 96374; 99284-25; J0780; J7120

== ENCOUNTER → 2020-09-10 | Outpatient (CLI) | payer MEDICARE ==
[2020-09-10 10:43] LABS: BASOPHILS ABSOLUTE AUTO 0.02 K/mm3 (0.00-0.23); BASOPHILS PERCENT AUTO 0 % (0-2); EOSINOPHILS PERCENT AUTO 1 % (0-6); Hematocrit 26.3 % (33.0-51.0); Hemoglobin 8.8 g/dL (11.5-16.0); IMMATURE GRAN ABSOLUTE AUTO 0.04 K/mm3 (0.00-0.10); IMMATURE GRAN PERCENT AUTO 0 % (0-1); LYMPHOCYTES ABSOLUTE AUTO 0.52 K/mm3 (0.84-5.20); LYMPHOCYTES PERCENT AUTO 6 % (21-46); MONOCYTES PERCENT AUTO 5 % (4-13); Mean Corpuscular HGB 29.7 pg (26.0-34.0); Mean Corpuscular HGB Conc 33.5 g/dL (31.5-36.5); Mean Corpuscular Volume 89 fL (80-100); Mean Platelet Volume 9.2 fL (9.1-12.4); NEUTROPHILS ABSOLUTE AUTO 8.07 K/mm3 (1.96-9.15); NEUTROPHILS PERCENT AUTO 87 % (41-73); Platelet Count 514 K/mm3 (150-400); RDW Coefficient Variation 17.1 % (11.7-14.2); RDW Standard Deviation 53.3 fL (35.1-46.3); Red Blood Cell Count 2.96 M/mm3 (3.80-5.20); White Blood Cell Count 9.25 K/mm3 (4.00-11.30)
[2020-09-10 11:07] LABS: Alanine Aminotransfer (ALT/SGP 21 U/L (12-78); Albumin, Blood 2.7 g/dL (3.4-5.0); Albumin/Globulin Ratio 0.6 (0.8-1.8); Alk Phos 94 U/L (50-136); Anion Gap 10 mmol/L (6-16); Aspartate Aminotrans (AST/SGOT 18 U/L (12-37); Bilirubin, Total 0.6 mg/dL (0.1-1.0); Blood Urea Nitrogen 8 mg/dL (8-24); Bun/Creatinine Ratio 15.8 (12.0-20.0); CO2, Blood 25 mmol/L (21-32); Calcium, Blood 8.8 mg/dL (8.5-10.1); Chloride, Blood 98 mmol/L (98-108); Creatinine, Blood 0.51 mg/dL (0.40-1.00); Globulin, Blood 4.3 g/dL (2.2-4.0); Glomerular Filtration Rate >60 (60-); Glucose, Blood 92 mg/dL (70-99); Potassium, Blood 2.5 mmol/L (3.5-5.5); Sodium, Blood 133 mmol/L (136-145)
== END | disposition home or self-care (01) ==
LOC: LAB SHORT 10:20
PROVIDERS: Internal Medicine Hematology & Oncology
DX: C34.90 Malignant neoplasm of unspecified part of unspecified bronchus or lung (principal)
CPT/HCPCS: 80053; 85025

== ENCOUNTER 2020-09-22 23:26 | Emergency (ER) | payer MEDICARE ==
[~2020-09-22] VITALS: Ht 157.5 cm; Wt 56.7 kg
== END 2020-09-23 01:05 | disposition home or self-care (01) ==
LOC: ER 23:26
DX: S11.91XA Laceration without foreign body of unspecified part of neck, initial encounter (principal); S01.81XA Laceration without foreign body of other part of head, initial encounter; S61.512A Laceration without foreign body of left wrist, initial encounter; S61.511A Laceration without foreign body of right wrist, initial encounter; R55 Syncope and collapse; I10 Essential (primary) hypertension; Z79.899 Other long term (current) drug therapy; Z88.6 Allergy status to analgesic agent; Z88.2 Allergy status to sulfonamides; Z88.1 Allergy status to other antibiotic agents; Z88.8 Allergy status to other drugs, medicaments and biological substances; Z85.72 Personal history of non-Hodgkin lymphomas; Z85.118 Personal history of other malignant neoplasm of bronchus and lung; W18.11XA Fall from or off toilet without subsequent striking against object, initial encounter; Y92.008 Other place in unspecified non-institutional (private) residence as the place of occurrence of the external cause
CPT/HCPCS: 36415; 93005; 93010; 99285-25

== ENCOUNTER 2020-09-26 01:36 | Day surgery (SDC) | payer MEDICARE ==
[2020-09-25 09:49] LABS: Alanine Aminotransfer (ALT/SGP 17 U/L (12-78); Albumin, Blood 2.1 g/dL (3.4-5.0); Albumin/Globulin Ratio 0.4 (0.8-1.8); Alk Phos 147 U/L (50-136); Anion Gap 12 mmol/L (6-16); Aspartate Aminotrans (AST/SGOT 11 U/L (12-37); Bilirubin, Total 0.6 mg/dL (0.1-1.0); Blood Urea Nitrogen 9 mg/dL (8-24); Bun/Creatinine Ratio 13.3 (12.0-20.0); CO2, Blood 21 mmol/L (21-32); Calcium, Blood 9.5 mg/dL (8.5-10.1); Chloride, Blood 98 mmol/L (98-108); Creatinine, Blood 0.68 mg/dL (0.40-1.00); Glomerular Filtration Rate >60 (60-); Glucose, Blood 141 mg/dL (70-99); Potassium, Blood 4.2 mmol/L (3.5-5.5); Sodium, Blood 131 mmol/L (136-145); Total Protein, Blood 7.1 g/dL (6.4-8.2)
[2020-09-25 09:51] LABS: BASOPHILS ABSOLUTE AUTO 0.01 K/mm3 (0.00-0.23); BASOPHILS PERCENT AUTO 0 % (0-2); EOSINOPHILS PERCENT AUTO 0 % (0-6); Hematocrit 25.5 % (33.0-51.0); Hemoglobin 7.9 g/dL (11.5-16.0); IMMATURE GRAN ABSOLUTE AUTO 0.03 K/mm3 (0.00-0.10); IMMATURE GRAN PERCENT AUTO 1 % (0-1); LYMPHOCYTES ABSOLUTE AUTO 0.41 K/mm3 (0.84-5.20); LYMPHOCYTES PERCENT AUTO 12 % (21-46); MONOCYTES ABSOLUTE AUTO 0.54 K/mm3 (0.16-1.47); MONOCYTES PERCENT AUTO 16 % (4-13); Mean Corpuscular HGB 30.4 pg (26.0-34.0); Mean Corpuscular Volume 98 fL (80-100); Mean Platelet Volume 9.9 fL (9.1-12.4); NEUTROPHILS ABSOLUTE AUTO 2.38 K/mm3 (1.96-9.15); NEUTROPHILS PERCENT AUTO 71 % (41-73); Platelet Count 383 K/mm3 (150-400); RDW Coefficient Variation 21.7 % (11.7-14.2); RDW Standard Deviation 75.7 fL (35.1-46.3); White Blood Cell Count 3.37 K/mm3 (4.00-11.30)
--- NOTE | 2020-09-26 13:59 | NUR ---
PT TO [facility] FOR BLOOD TRANSUFUSION. PT WITH SOB ON EXERTION AND TALKING. STATES SHE HAS WEAK THROAT MUSCLES AND MAKES IT DIFFICULT TO SPEAK. LUNG SOUNDS CLEAR. SATS 99% ON R/A.
--- NOTE | 2020-09-26 14:34 | NUR ---
PT STATES INCREASING SOB. BLOOD TRANSFUSION STOPPED. LUNG SOUNDS CLEAR. BP 124/65, PULSE 111, RESP 28, O2 SAT 100%. PT STATES SHE SOMETIMES HAS ANXIETY. CALLED DR. FOX OFFICE AND INFORMED OF PT STATUS. ORDER OBTAINED FOR LORAZEPAM (PT TAKES THIS AT HOME PRN).
--- NOTE | 2020-09-26 14:57 | NUR ---
PT AGAINS COMPLAINS OF SOB AFTER BLOOD HAS BEEN RESTARTED. LUNG SOUNDS CLEAR. BP 143/81. HR 110, RESP 24, TEMP 97.9, O2 SAT 99%. BLOOD STOPPED. CALLED DR. MTZ OFFICE TO REPORT STATUS OF PT. SPOKE WITH WINTER MEDINA MA, STATES SHE WILL HAVE DR. DUFFY CALL US SHORTLY. LAB NOTIFIED THAT TRANSFUSION STOPPED. NS STARTED PER HOSPITAL POLICY. PT RECEIVED APPROX 33CC OF BLOOD.
--- NOTE | 2020-09-26 15:30 | NUR ---
PT STATES SHE IS FEELING BETTER. APPEARS TO BE RESTING COMFORTABLE. STATES SHE IS COLD. WARM BLANKETS ON PATIENT.
--- NOTE | 2020-09-26 15:55 | NUR ---
SPOKE WITH WINTER MEDINA MA AT DR. MEDINA. ORDERS GIVEN TO GIVE BENDARYL 25MG IV, WAIT 15 MINUTES THEN RESTART BLOOD TRANSFUSION. SPOKE WITH PATIENT, AND SHE AGREES TO PROCEED WITH PLAN.
== END 2020-09-26 23:00 | disposition home or self-care (01) ==
LOC: ATC 01:36 → EDSTATUS 09-09 10:55 → LAB FUT 09-09 10:55
PROVIDERS: Internal Medicine Hematology & Oncology
DX: C34.31 Malignant neoplasm of lower lobe, right bronchus or lung (principal); I10 Essential (primary) hypertension; Z86.73 Personal history of transient ischemic attack (TIA), and cerebral infarction without residual deficits; Z88.1 Allergy status to other antibiotic agents; Z88.2 Allergy status to sulfonamides; Z88.8 Allergy status to other drugs, medicaments and biological substances
CPT/HCPCS: 36415; 36430; 80053; 85025; 86850; 86900; 86901; 86923; A9270; J1200; J1642; J7050; P9016

== ENCOUNTER 2020-09-30 18:28 | Inpatient (IN) | payer MEDICARE ==
[~2020-09-30] VITALS: Ht 157.5 cm; Wt 56.0 kg
[2020-09-30 19:13] LABS: BASOPHILS ABSOLUTE AUTO 0.04 K/mm3 (0.00-0.23); BASOPHILS PERCENT AUTO 1 % (0-2); EOSINOPHILS ABSOLUTE AUTO 0.06 K/mm3 (0.00-0.68); EOSINOPHILS PERCENT AUTO 1 % (0-6); Hematocrit 31.4 % (33.0-51.0); Hemoglobin 10.4 g/dL (11.5-16.0); IMMATURE GRAN ABSOLUTE AUTO 0.05 K/mm3 (0.00-0.10); IMMATURE GRAN PERCENT AUTO 1 % (0-1); LYMPHOCYTES ABSOLUTE AUTO 0.38 K/mm3 (0.84-5.20); LYMPHOCYTES PERCENT AUTO 6 % (21-46); MONOCYTES ABSOLUTE AUTO 1.28 K/mm3 (0.16-1.47); MONOCYTES PERCENT AUTO 20 % (4-13); Mean Corpuscular HGB 31.4 pg (26.0-34.0); Mean Corpuscular HGB Conc 33.1 g/dL (31.5-36.5); Mean Corpuscular Volume 95 fL (80-100); Mean Platelet Volume 9.6 fL (9.1-12.4); NEUTROPHILS ABSOLUTE AUTO 4.72 K/mm3 (1.96-9.15); NEUTROPHILS PERCENT AUTO 72 % (41-73); Platelet Count 504 K/mm3 (150-400); RDW Coefficient Variation 19.7 % (11.7-14.2); RDW Standard Deviation 67.4 fL (35.1-46.3); Red Blood Cell Count 3.31 M/mm3 (3.80-5.20); White Blood Cell Count 6.53 K/mm3 (4.00-11.30)
[2020-09-30 19:26] LABS: Alanine Aminotransfer (ALT/SGP 16 U/L (12-78); Albumin, Blood 1.9 g/dL (3.4-5.0); Albumin/Globulin Ratio 0.4 (0.8-1.8); Alk Phos 144 U/L (50-136); Anion Gap 9 mmol/L (6-16); Aspartate Aminotrans (AST/SGOT 52 U/L (12-37); Bilirubin, Total 0.9 mg/dL (0.1-1.0); Blood Urea Nitrogen 9 mg/dL (8-24); Bun/Creatinine Ratio 17.3 (12.0-20.0); CO2, Blood 22 mmol/L (21-32); Calcium, Blood 8.7 mg/dL (8.5-10.1); Chloride, Blood 98 mmol/L (98-108); Creatinine, Blood 0.52 mg/dL (0.40-1.00); Ethanol (Alcohol), Blood, Med <3 mg/dL; Globulin, Blood 4.9 g/dL (2.2-4.0); Glomerular Filtration Rate >60 (60-); Glucose, Blood 82 mg/dL (70-99); Potassium, Blood 3.9 mmol/L (3.5-5.5); Sodium, Blood 129 mmol/L (136-145); Total Protein, Blood 6.8 g/dL (6.4-8.2)
[2020-09-30] MEDS ORDERED: PROM25 PO (19:29)
[2020-09-30] MEDS ORDERED: METO10 PO (19:30)
[2020-09-30] MEDS ORDERED: FOLI1 PO (19:32)
[2020-09-30] MEDS ORDERED: ONDA8 PO ×2 (19:33→19:35)
[2020-09-30] MEDS ORDERED: POTASSIUM GLUCO99 M1 PO (19:39)
[2020-10-01 01:01] LABS: Source, Urine Clean Catch
[2020-10-01 01:07] LABS: Appearance, Urine Clear (Clear); Bilirubin, Urine Neg (Neg); Blood, Urine Neg (Neg); Color, Urine Amber (P-Yellow); Glucose Qualitative, Urine Neg (Neg); Ketones, Urine 2+ (Neg); Leukocyte Esterase, Urine Neg (Neg); Nitrite, Urine Neg (Neg); Protein, Urine 1+ (Neg); Urobilinogen, Urine NORM (Normal)
[2020-10-01 01:18] LABS: U Amphetamine Screen Not Detected; U Barbituate Screen Not Detected; U Benzodiazapine Screen Not Detected; U Buprenorphine Screen Not Detected; U Cannabinoids Screen Not Detected; U Cocaine Screen Not Detected; U Methadone Screen Not Detected; U Methamphetamine Screen Not Detected; U Opiates Screen DETECTED; U Oxycodone Screen Not Detected; U Phencyclidine Screen Not Detected; U Propoxyphene Screen Not Detected
[2020-10-01 04:55] LABS: BASOPHILS ABSOLUTE AUTO 0.04 K/mm3 (0.00-0.23); BASOPHILS PERCENT AUTO 1 % (0-2); EOSINOPHILS ABSOLUTE AUTO 0.06 K/mm3 (0.00-0.68); EOSINOPHILS PERCENT AUTO 1 % (0-6); Hematocrit 26.3 % (33.0-51.0); Hemoglobin 8.6 g/dL (11.5-16.0); IMMATURE GRAN ABSOLUTE AUTO 0.03 K/mm3 (0.00-0.10); IMMATURE GRAN PERCENT AUTO 1 % (0-1); LYMPHOCYTES ABSOLUTE AUTO 0.35 K/mm3 (0.84-5.20); LYMPHOCYTES PERCENT AUTO 6 % (21-46); MONOCYTES ABSOLUTE AUTO 1.17 K/mm3 (0.16-1.47); MONOCYTES PERCENT AUTO 20 % (4-13); Mean Corpuscular HGB 31.7 pg (26.0-34.0); Mean Corpuscular HGB Conc 32.7 g/dL (31.5-36.5); Mean Corpuscular Volume 97 fL (80-100); Mean Platelet Volume 9.1 fL (9.1-12.4); NEUTROPHILS ABSOLUTE AUTO 4.16 K/mm3 (1.96-9.15); NEUTROPHILS PERCENT AUTO 72 % (41-73); Platelet Count 352 K/mm3 (150-400); RDW Coefficient Variation 20.5 % (11.7-14.2); RDW Standard Deviation 72.3 fL (35.1-46.3); Red Blood Cell Count 2.71 M/mm3 (3.80-5.20); White Blood Cell Count 5.81 K/mm3 (4.00-11.30)
[2020-10-01 05:13] LABS: Alanine Aminotransfer (ALT/SGP 12 U/L (12-78); Albumin, Blood 1.7 g/dL (3.4-5.0); Albumin/Globulin Ratio 0.4 (0.8-1.8); Alk Phos 127 U/L (50-136); Anion Gap 7 mmol/L (6-16); Aspartate Aminotrans (AST/SGOT 14 U/L (12-37); Bilirubin, Total 0.4 mg/dL (0.1-1.0); Blood Urea Nitrogen 8 mg/dL (8-24); Bun/Creatinine Ratio 14.6 (12.0-20.0); CO2, Blood 25 mmol/L (21-32); Calcium, Blood 8.4 mg/dL (8.5-10.1); Chloride, Blood 100 mmol/L (98-108); Creatinine, Blood 0.55 mg/dL (0.40-1.00); Globulin, Blood 3.9 g/dL (2.2-4.0); Glomerular Filtration Rate >60 (60-); Glucose, Blood 86 mg/dL (70-99); Potassium, Blood 3.6 mmol/L (3.5-5.5); Sodium, Blood 132 mmol/L (136-145); Total Protein, Blood 5.6 g/dL (6.4-8.2)
--- NOTE | 2020-10-01 05:43 | NUR ---
SHIFT SUMMARY ADMIT FROM ED THIS AM. A/O TO SELF ONLY, ANSWERING YES/NO QUESTIONS. CONTINUES TO BE SOMNOLENT. ABLE TO USE BEDPAN THIS SHIFT. MEDIPORT TO L. CHEST WALL WITH DRESSING C/D/I. PLEURX DRESSING TO R. ABD. SEVERAL SKIN TEARS TO BUE FROM PREVIOUS FALL. VSS, BED IN LOWEST POSITION WITH CALL LIGHT IN REACH. WILL CONTINUE TO MONITOR AND REPORT TO ONCOMING RN.
--- NOTE | 2020-10-01 12:44 | NUR ---
Update 10/01/20: Pt. admitted for generalized weakness. PMH of lung cancer. Denied current chemo or radiation treatment. Pt. reported that she was scheduled to have PET scan on day of admission. Palliative care consult ordered. Malnutrition is a concern, dietary consult ordered at time of admission. PT evaluation completed this am with a recommendation for home health and potential need for caregiver assistance. HHC previously through [facility] . Discontinued in June 2020. Pt. lives with Wally who has been providing caregiver support. Will likely need row boss hoeing at time of discharge. americo to contact Wally to discuss further.
[2020-10-01 12:59] LABS: Adenovirus Not Detected (NOT DETECT); Bordetella pertussis Not Detected (NOT DETECT); Chlamydophila pneumoniae Not Detected (NOT DETECT); Coronavirus 229E Not Detected (NOT DETECT); Coronavirus HKU1 Not Detected (NOT DETECT); Coronavirus NL63 Not Detected (NOT DETECT); Coronavirus OC43 Not Detected (NOT DETECT); Human Metapneumovirus Not Detected (NOT DETECT); Human Rhinovirus/Enterovirus Not Detected (NOT DETECT); Influenza A/2009-H1 Not Detected (NOT DETECT); Influenza A/H1 Not Detected (NOT DETECT); Influenza A/H3 Not Detected (NOT DETECT); Influenza B Not Detected (NOT DETECT); Mycoplasma pneumoniae Not Detected (NOT DETECT); Parainfluenza Virus 1 Not Detected (NOT DETECT); Parainfluenza Virus 2 Not Detected (NOT DETECT); Parainfluenza Virus 3 Not Detected (NOT DETECT); Parainfluenza Virus 4 Not Detected (NOT DETECT); Respiratory Syncytial Virus Not Detected (NOT DETECT); SARS-Cov-2 (COVID-19), BioFire Not Detected (NOT DETECT)
--- NOTE | 2020-10-01 12:59 | NUR ---
Supportive Visit Pt resting in bed upon arrival. Pt denies pain and nausea at this time. Pt appears dyspneic as evidenced by respiratory effort and ability to only speak in 1 to 2 word sentences. Pt confirms SOB and anxiety. Pt is known to this commercial insurance underwriter from previous hospital stay. Educated Pt and spouse on PleurX drain during previous hospital stay. Offered therapeutic listening as Pt reports experiencing decreased appetite and has been struggling with doing simple tasks such as ambulation. Listened as Pt reports her and her spouse have discussed hospice and pending results of CT may go in this direction if cancer is worse. Pt reports thinking the results are going to be worse based on how she has been feeling and her condition. Answered questions and validated concerns. Continued therapeutic listening. Provided new cup of ice water per Pt's request and confirmation from Primary RN Lakeisha. Pt agreeable for continued Palliative Care visits. 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 Jasper reports Pt is at baseline and will recommend home health but may benefit from hospice. Palliative Care will remain available for supportive and therapeutic visits.
--- NOTE | 2020-10-01 18:27 | NUR ---
SHIFT SUMMARY- PT IS ALERT, PLESANT AND COOPERATVIE. SHE IS FORGETFUL AT TIMES. HER WAS AT BEDSIDE THIS AFTERNOON. SHE WORKED WITH PT AND BECAME VERY FATIGUED JAIL THROUGH AND NEEDED TO SIT. SHE WENT FOR A CT THIS AFTERNOON. SHE SPOKE WITH PALATIVE CARE ABOUT HER CODE STATUS AND GOALS FOR CARE. HER APPETITE IS GOOD. HER BED IS IN THE LOW POSITON AND CALL LIGHT IS WITHIN REACH
--- NOTE | 2020-10-02 04:08 | NUR ---
SHIFT SUMMARY A/O TO SELF AND FAMILY. PT ATTEMPTING TO GET OUT OF BED INDEPENDTLY T/O SHIFT. EASILY REDIRECTABLE. CURRENTLY ON RA. MEDIPORT TO L. CHEST WALL. PLEURX CATHETER DRESSING TO R. ABD. UP TO BSC WITH 1 ASSIST. VSS, NO ACUTE CHANGES AT THIS TIME. BED IN LOWEST POSITION WITH CALL LIGHT IN REACH. WILL CONTINUE TO MONITOR AND REPORT TO ONCOMING RN.
--- NOTE | 2020-10-02 11:51 | NUR ---
Spoke with Dr Gooden prior to visiting with Pt and discussed case. Pt resting in bed upon arrival. Pt denies pain at this time. Offered therapeutic listening as Pt discussed plan to have Dr Diaz render recommendations. Listened as Pt reports if Dr Diaz recommends continued treatment that she does not look forward to side effects. Continued therapeutic listeing and answered questions. Ended supportive visit to allow Pt to rest. Palliative Care will remain available.
--- NOTE | 2020-10-02 14:47 | NUR ---
PATIENT ALERT AND ORIENTED TO SELF, PLACE AND TIME ALTHOUGH DOES NOT RECALL COMING TO THE HOSPITAL OR WHY SHE IS IN THE HOSPITAL. SHE IS PLEASANT AND COOPPERATIVE WITH CARE. VITALS STABLE. SBA WITH TRANSFERS FROM/TO BED. BED/CHAIR ALARM ACTIVE FOR SAFETY MEASURE. PATIENT IS CURRENTLY RESTING IN BED. CALL LIGHT WITHIN REACH.
--- NOTE | 2020-10-02 19:00 | NUR ---
ASSUMED CARE RECEIVED REPORT FROM MARIA G TENA. PT RESTING, IN NAD. NO ACUTE NEEDS ASSESSED AT THIS TIME. CALL LIGHT, POSSESSIONS IN REACH, BED IN LOW AND LOCKED POSITION WITH ALARMS ON.
--- NOTE | 2020-10-03 04:42 | NUR ---
CORRESPONDENCE SCHOOL TEACHER SUMMARY PT ASLEEP, IN NAD. APPEARED TO SLEEP WELL T/O NIGHT. NO ACUTE CHANGES IN CONDITION TO REPORT OVERNIGHT. VS REVIEWED,WNL; O2 SATS >92%. NO ACUTE NEEDS ASSESSED AT THIS TIME. CALL LIGHT, POSSESSIONS IN REACH, BED IN LOW AND LOCKED POSITION WITH ALARMS ON. WILL CONTINUE TO PROVIDE CARE NEEDED UNTIL REPORT GIVEN TO ONCOMING RN.
--- NOTE | 2020-10-03 10:46 | NUR ---
Brief supportive visit this AM. Pt resting in bed and denies pain at this time. Pt appears more withdrawn this AM and does not engage in conversations. Encouraged Pt to discuss concerns with Pt not responding. This RN ended visit to allow Pt to rest. Spoke with Primary RN Sujatha and discussed case. Palliative Care will remain available for continued supportive visits.
--- NOTE | 2020-10-03 14:00 | NUR ---
PT HAS BEEN QUIET IN ROOM. EATING SMALL AMOUNTS OF MEALS. WAITING FOR DR. Everett ANDERSON TO COME SEE HER. DENIES RESP DISTRESS. ON RA. CONTINUES TO HAVE A WEAK WET MINIMALLY PRODUCTIVE COUGH. REPORT GIVEN TO MYRNA CUMMINS
--- NOTE | 2020-10-03 17:21 | NUR ---
Update 10/02/20: Per chart review with Dr. Mittal, pt. appropriate for discharge today. Discussed discharge planning with pt. She denied concern for safety or barriers to care. provide support at home. We discuss hospice and she has decided that she would like to go home and discuss hospice further with her . Pt. scheduled for a hospital follow-up next week on 10/10/20 at 10:[address] Lazaro. Advised pt. to call if she has any questions or concerns.
[2020-10-03] MEDS ORDERED: CEFD300 PO (17:30)
[2020-10-03] MEDS ORDERED: XARELTO20 MG PO (17:30)
== END 2020-10-03 18:28 | disposition home or self-care (01) | DRG 193 ==
LOC: ER 18:28 → MEDS 23:54 → ER 23:54 → ERHOLD 23:54 → MEDS 10-01 02:04 → ERHOLD 10-01 03:40 → MEDS 10-01 03:40
PROVIDERS: Emergency Medicine; Family Medicine; ADMIT Internal Medicine
DX: J18.9 Pneumonia, unspecified organism (principal); E43 Unspecified severe protein-calorie malnutrition; C34.90 Malignant neoplasm of unspecified part of unspecified bronchus or lung; E87.1 Hypo-osmolality and hyponatremia; Z20.822 Contact with and (suspected) exposure to COVID-19; E86.0 Dehydration; I10 Essential (primary) hypertension; Z86.73 Personal history of transient ischemic attack (TIA), and cerebral infarction without residual deficits; Z86.711 Personal history of pulmonary embolism; Z90.49 Acquired absence of other specified parts of digestive tract; Z98.890 Other specified postprocedural states; Z90.710 Acquired absence of both cervix and uterus; Z88.2 Allergy status to sulfonamides; Z88.6 Allergy status to analgesic agent; Z88.8 Allergy status to other drugs, medicaments and biological substances; Z79.899 Other long term (current) drug therapy; Z87.891 Personal history of nicotine dependence; Z68.22 Body mass index [BMI] 22.0-22.9, adult
CPT/HCPCS: 0202U; 36415; 71046; 71260; 74177; 80053; 84300; 85025; 87040; 93005; 93010; 96374-59; 96375; 97110; 97116; 97162; 97530; 99285-25; A9270; G0480; J0456; J0696; J1170; J1650; J2405; J7030; J7050; Q9967